=== PATIENT | male | born 1985 | race Caucasian/White ===

== ENCOUNTER 2020-05-04 19:06 | Emergency (ER) | payer BC, SELFPAY ==
--- NOTE | 2020-05-04 19:11 | ED.WOUNDLAC ---
HPI - Wound/Laceration General Chief Complaint: Wound/Laceration Stated Complaint: leg injury Time Seen by Provider: 05/04/20 19:20 Source: patient and RN notes reviewed Mode of arrival: ambulatory Limitations: no limitations History of Present Illness HPI narrative: 35-year-old male presents with concern for laceration to his anterior left lower leg that he sustained on a metal part of a pool just prior to arrival. Reports he is not up-to-date on his vaccinations. Extremity Location: Left: lower leg Related Data Home Medications Medication Instructions Recorded Confirmed clonazepam 05/04/20 escitalopram oxalate mg 05/04/20 Allergies Allergy/AdvReac Type Severity Reaction Status Date / Time Penicillins Allergy Unknown Verified 01/17/20 10:25 sulfamethizole Allergy Unknown Verified 01/17/20 10:25 trimethoprim Allergy Unknown Verified 01/17/20 10:25 Review of Systems Review of Systems: Narrative: CONSTITUTIONAL: Denies malaise, chills, sweats, or fever. SKIN: Reports laceration to the anterior left lower leg MUSCULOSKELETAL: Denies decreased range of motion, strength, sensation NEUROLOGIC: Denies numbness, weakness All systems reviewed & are unremarkable except as noted in HPI and below PMFSH Family History Family History (System 01/17/20 @ 10:25 by Samina Mix) Grandparent Hypertension Cerebrovascular accident Family history of lymphoma Social History Social History (System 01/17/20 @ 10:25 by Samina Mix) Smoking status: Never smoker Alcohol intake: current Comments At time of signature, agree with nursing past medical, surgical, social and family history. There is no relevant family history pertinent to the presenting complaint Exam Narrative: Exam Narrative: GENERAL: Well-appearing, well-nourished, and in no acute distress. HEAD: Normocephalic, atraumatic. EYES: PERRLA, conjunctivae clear NECK: Supple. CHEST: Speaks in full sentences. No respiratory distress. HEART: Regular rate and rhythm. Normal and equal peripheral pulses. EXTREMITIES: Left lower leg has normal strength and sensation, no edema, normal range of motion. Normal sensation with sensitivity to light touch and pain. No open wounds, no skin tenting, no devitalized tissue or atrophy, no ecchymosis, no obvious deformity, alignment normal, no point tenderness, nearby joints and structures intact. Distal pulses palpable and equal bilaterally, skin warm, dry, pink. Capillary refill less than 3 seconds. SKIN: Warm, dry. 5 cm linear laceration into the subcutaneous tissue, gaping noted to the left anterior lower leg. NEURO: Alert and oriented x3. PSYCH: Normal mood and affect Course Course Emergency Course: Patient is aware of diagnosis, understands and agrees to treatment plan. Anticipatory guidance given. Patient agrees to follow-up as directed and is aware of reasons to seek care at the emergency department. Portions of this record may have been created with voice recognition software Vital Signs Vital signs: Vital Signs Temperature 98.3 F 05/04/20 19:16 Pulse Rate 108 H 05/04/20 19:16 Respiratory Rate 16 05/04/20 19:16 Blood Pressure 146/84 H 05/04/20 19:16 Pulse Oximetry 98 05/04/20 19:16 Temperature 98.3 F 05/04/20 19:16 Pulse Rate 108 H 05/04/20 19:16 Respiratory Rate 16 05/04/20 19:16 Blood Pressure 146/84 H 05/04/20 19:16 Pulse Oximetry 98 05/04/20 19:16 Reviewed. Procedures Laceration Laceration 1: Date: 05/04/20 Time: 19:21 Site: lower extremity Side (If applicable): left Size (cm): 5 Description: linear Depth: simple, single layer Local Anesthetic: lidocaine 1% Pre-repair: wound explored and irrigated ====== Skin Level ====== Skin layer closed with: nylon Size (cm): 4-0 Number of sutures: 7 Technique: simple, interrupted ====== Subcutaneous Layer ====== ==
[2020-05-04 19:16] VITALS: BP 146/84; PULSE 108; RESP 16; TEMP 36.8; O2SAT 98
[2020-05-04] MEDS: TETANUS,DIPHTHERIA,AC PERTUSSIS ADULT (0.5 ML) BOOSTRIX IM (19:31)
== END 2020-05-04 19:54 | disposition home or self-care (01) ==
PROVIDERS: Emergency Provider Nurse Practitioner; PCP Internal Medicine
DX: S81.812A Laceration without foreign body, left lower leg, initial encounter (principal); W26.8XXA Contact with other sharp object(s), not elsewhere classified, initial encounter; Z23 Encounter for immunization
CPT/HCPCS: 12002; 90471; 90715; 99212; G0463

== ENCOUNTER 2020-06-24 12:11 | Emergency (ER) | payer BC, SELFPAY ==
[2020-06-24 12:31] VITALS: BP 133/85; PULSE 87; RESP 16; TEMP 36.4; O2SAT 99
--- NOTE | 2020-06-24 12:56 | ED.GENADULT ---
HPI - General Adult General Chief complaint: Ear Stated complaint: ear pain right ear Time Seen by Provider: 06/24/20 12:56 Source: patient Mode of arrival: ambulatory Limitations: no limitations History of Present Illness HPI narrative: 35-year-old male patient presents to the [facility] with complaints of right ear pain for the past 2 weeks. Patient states that he called his doctor and he prescribed him some azithromycin and an eardrop but never actually seen him. Patient states that his symptoms did get better about 4 days after starting the antibiotics and did finish the antibiotics. Patient states he noticed that his left ear was starting to bother him as well and started using the antibiotics and then again last night he had increased pain to the right ear and states now it hurts so bad he cannot even hear out of the ear. Patient does have history of psoriasis. Patient denies any fevers, sore throat, runny nose, coughing, chest pain, shortness of breath. Patient states that he called his doctor again and they tried to refer him to an ENT doctor but that the ENT doctor does not currently take his insurance so he was further referred here to have his ear looked at. Related Data Home Medications Medication Instructions Recorded Confirmed clonazepam 05/04/20 escitalopram oxalate mg 05/04/20 quetiapine 06/24/20 tadalafil mg 06/24/20 Allergies Allergy/AdvReac Type Severity Reaction Status Date / Time Penicillins Allergy Unknown Verified 01/17/20 10:25 sulfamethizole Allergy Unknown Verified 01/17/20 10:25 trimethoprim Allergy Unknown Verified 01/17/20 10:25 Review of Systems Review of Systems: Narrative: CONSTITUTIONAL: Denies fever, chills, or sweats. EYES: Denies visual changes, redness, or discharge. ENT: Denies rhinorrhea, congestion, sore throat, positive right otalgia. CARDIOVASCULAR: Denies chest pain, palpitations, or edema. RESPIRATORY: Denies cough or dyspnea. GASTROINTESTINAL: Denies abdominal pain, nausea, vomiting, or diarrhea. GENITOURINARY: Denies dysuria or hematuria. SKIN: Denies rash or itching. MUSCULOSKELETAL: Denies back pain, joint pain, or myalgia. NEUROLOGIC: Denies headache, numbness, or weakness. PSYCHIATRIC: Denies anxiety or depression. [facility] Past Medical History Medical History (Updated 06/24/20 @ 13:32 by THONG Batista) Anxiety Depression GERD (gastroesophageal reflux disease) GI bleed Surgical History Surgical History (Updated 06/24/20 @ 12:57 by THONG Batista) History of tonsillectomy Family History Family History Grandparent Hypertension Cerebrovascular accident Family history of lymphoma Social History Social History Smoking status: Never smoker Alcohol intake: current Comments At the time of my signature I agree with nursing past medical history, surgical, social, and family history. There is no relevant family history pertinent to the presenting complaint. Exam Narrative: Exam Narrative: GENERAL: Well-appearing, well-nourished, and in no acute distress. HEAD: Normocephalic, atraumatic. EYES: PERRLA and EOMI. ENT: Nares clear, no rhinorrhea or epistaxis. Mucous membranes moist. The right TM is unable to be assessed due to cerumen impaction. There is some swelling and erythema noted to the canal along with some flaky skin noted. NECK: Supple. No lymphadenopathy CHEST: Clear to auscultation. No respiratory distress. HEART: Regular rate and rhythm. No murmur heard. Normal peripheral pulses. ABDOMEN: Soft, nontender, nondistended, normal active bowel sounds. EXTREMITIES: Normal range of motion. No edema. SKIN: Warm, dry, no rash. NEURO: No focal deficits. Alert and oriented x3. Course Vital Signs Vital signs: Vital Signs Temperature 36.4 C 06/24/20 12:31 Pulse Rate 87 06/24/20 12:31 Respiratory Rate 16
[2020-06-24] MEDS: CARBAMIDE PEROXIDE 6.5% OT SOLN 15 ML BTL 5 DROP EACH EAR (13:14)
== END 2020-06-24 13:37 | disposition home or self-care (01) ==
PROVIDERS: Emergency Provider Nurse Practitioner Family
DX: H61.21 Impacted cerumen, right ear (principal); H66.91 Otitis media, unspecified, right ear; F32.9 Major depressive disorder, single episode, unspecified; F41.9 Anxiety disorder, unspecified
CPT/HCPCS: 69209; 99213; A9270; G0463

== ENCOUNTER 2021-01-18 11:27 | Emergency (ER) | payer BC, SELFPAY ==
[2021-01-18 11:30] VITALS: BP 107/87; PULSE 120; RESP 20; TEMP 36.8; O2SAT 96
--- NOTE | 2021-01-18 11:47 | ED.URI ---
HPI - URI/Sore Throat General Chief Complaint: Upper Respiratory Infection Stated Complaint: sore throat, URI Time Seen by Provider: 01/18/21 11:47 History of Present Illness HPI Narrative: 35 yo male presents to the ED with a sore throat. He reports that he began feeling sick about 1 week ago. He had fever, cough, fatigue, body aches and sore throat. 3 other family members have all tested positive for COVID-19. His rapid test was negative and PCR pending. He was prescribed Augmentin and hydrocodone by his PCP. Despite this he reports that his sore throat is intolerable and getting worse. Related Data Home Medications Medication Instructions Recorded Confirmed clonazepam 05/04/20 escitalopram oxalate mg 05/04/20 quetiapine 06/24/20 tadalafil mg 06/24/20 propranolol 01/18/21 01/18/21 Allergies Allergy/AdvReac Type Severity Reaction Status Date / Time Penicillins Allergy Unknown Verified 01/17/20 10:25 sulfamethizole Allergy Unknown Verified 01/17/20 10:25 trimethoprim Allergy Unknown Verified 01/17/20 10:25 Review of Systems Review of Systems: All systems reviewed & are unremarkable except as noted in HPI and below Constitutional: Constitutional: Reports chills, Reports fatigue and Reports fever(s) Eyes: Eyes: Reports no additional eye complaints ENT: Denies dizziness and Reports sore throat Cardiovascular: Cardiovascular: Denies chest pain Respiratory: Respiratory: Reports cough and Denies dyspnea Gastrointestinal: Gastrointestinal: Denies abdominal pain, Reports diarrhea and Reports nausea Genitourinary: Genitourinary: Reports no additional male genitourinary complaints Musculoskeletal: Musculoskeletal: Reports myalgias Neurologic: Reports headache(s) [facility] Past Medical History Medical History Anxiety Depression GERD (gastroesophageal reflux disease) GI bleed Surgical History Surgical History History of tonsillectomy Family History Family History Grandparent Hypertension Cerebrovascular accident Family history of lymphoma Social History Social History Smoking status: Never smoker Alcohol intake: current Exam Const: General: healthy appearing, no acute distress and alert Orientation/consciousness: patient oriented x3 HENMT: Ears: TM's normal bilaterally Throat: posterior oropharynx abnormal erythema; no edema and no exudates Neck: Neck: normal visual inspection and lymphadenopathy (mild anterior ) Chest: Chest palpation & inspection: no tenderness Resp: Effort & Inspection: normal respiratory effort Auscultation: clear to auscultation bilaterally, no rales, no rhonchi and no wheezes Cardio: Jugular venous distension: no JVD Rate: regular rate Rhythm: regular rhythm Heart sounds: no murmurs GI: Inspection: non-distended GI Palp: Yes Soft to palpation and No Tenderness to palpation present (GI) Skin: General skin exam: normal color Neuro: General: patient oriented x3 and moves all extremities Speech: normal speech Extrem: General: no edema Psych: Appearance: well kempt Affect: normal affect Course Vital Signs Vital signs: Vital Signs Temperature 36.8 C 01/18/21 11:30 Pulse Rate 120 H 01/18/21 11:30 Respiratory Rate 20 01/18/21 11:30 Blood Pressure 107/87 01/18/21 11:30 Pulse Oximetry 96 01/18/21 11:30 Temperature 36.8 C 01/18/21 11:30 Pulse Rate 94 01/18/21 13:53 Respiratory Rate 18 01/18/21 13:53 Blood Pressure 132/89 01/18/21 13:53 Pulse Oximetry 99 01/18/21 13:53 MDM - URI/Sore Throat Differential Diagnosis Differential diagnosis: Likely viral infection, pharyngitis and other (strep, COVID,) Medical Records Attestation: I reviewed the patient's medical records. Lab Data Atte
[2021-01-18] MEDS: KETOROLAC (*BKC) 60 MG/2 ML VIAL IM (12:42)
[2021-01-18] MEDS: DEXAMETHASONE SOD PHOS INJ 4 MG/ML VIAL 10 MG IM (12:42)
[2021-01-18 13:53] VITALS: BP 132/89; PULSE 94; RESP 18; O2SAT 99
[2021-01-18 23:33] LABS: SARS-CoV-2 RNA PCR Positive
== END 2021-01-18 14:07 | disposition home or self-care (01) ==
PROVIDERS: Emergency Provider Emergency Medicine; PCP Internal Medicine
DX: U07.1 COVID-19 (principal); J02.9 Acute pharyngitis, unspecified; F41.9 Anxiety disorder, unspecified; F32.9 Major depressive disorder, single episode, unspecified; K21.9 Gastro-esophageal reflux disease without esophagitis
CPT/HCPCS: 87081; 87880; 96372; 99284; A9270; C9803; J1100; J1885; U0003; U0005

== ENCOUNTER 2025-04-12 10:12 | Emergency (ER) | payer BC, SELFPAY ==
--- NOTE | 2025-04-12 10:17 | ED_ITS ---
HPI - URI/Sore Throat General Chief Complaint: Upper Respiratory Infection Stated Complaint: URI symptoms Time Seen by Provider: 04/12/25 10:15 Source: patient Mode of arrival: ambulatory Limitations: no limitations History of Present Illness HPI Narrative: William is a 40-year-old male patient presenting to the clinic today with complaints of runny nose, chest congestion, sore throat, body aches, fevers, and chills. He reports symptoms have been off and on for the past week. States he is coughing up some brown and green phlegm. He is a nonsmoker. Denies any chest pain or shortness of breath. Has been taking Mucinex periodically. Related Data Home Medications ?Medication ?Instructions ?Recorded ?Confirmed ?Last Taken ?Type bupropion HCl 150 mg 24 hr tablet, mg PO 12/11/24 12/11/24 Unknown History extended release quetiapine 25 mg tablet mg PO 12/11/24 12/11/24 Unknown History Allergies Allergy/AdvReac Type Severity Reaction Status Date / Time Penicillins Allergy Unknown Unknown Verified 04/12/25 10:26 sulfamethizole Allergy Unknown Hives Verified 04/12/25 10:26 trimethoprim Allergy Unknown Unknown Verified 04/12/25 10:26 Review of Systems Review of Systems: Pertinent positives per HPI. Patient denies any rash, headache, visual changes, dizziness, shortness of breath, chest pain, palpitations, nausea, vomiting, diarrhea, constipation, abdominal pain, or any urinary issues. [facility] Past Medical History Medical History Elevated glucose Apnea GERD without esophagitis Hand pain, right Numbness of left foot Insomnia Anxiety Depression GI bleed GERD (gastroesophageal reflux disease) Surgical History Surgical History Hx of wisdom tooth extraction History of tonsillectomy Family History Family History Grandparent Hypertension Cerebrovascular accident Family history of lymphoma Father Chronic pain Depression Diabetes mellitus Mother Parkinson's disease Neuropathy Sibling No problems noted. 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 There is no relevant family history pertinent to the patient complaint. Exam Narrative: General: Well-developed, well nourished, in no apparent distress Head: Normocephalic, atraumatic Eyes: Pupils equally round and reactive to light bilaterally, EOM intact, sclera and conjunctive clear, no discharge, lids normal Ears: TMs intact and congested, ear canals clear, no drainage, grossly hearing normal. Nose: Nares patent, clear nasal discharge, no inflammation, no sinus tenderness. Mouth: Oral pharynx red without lesions or masses, good dentition, MMM. Neck: Supple, trachea midline, no enlargement of anterior or posterior cervical nodes, no thyroid masses or goiter palpable. Cardio: Regular rate and rhythm, s1 and s2 normal, no murmur appreciated. Resp: Clear to auscultation bilaterally, no rhonchi, rales, wheezing or rubs Course Course Emergency Course: Portions of this record may have been created with voice recognition software. Level of Care: Express Care Visit Vital Signs Vital signs: Vital Signs Temperature 37.2 C 04/12/25 10:22 Pulse Rate 114 H 04/12/25 10:22 Respiratory Rate 18 04/12/25 10:22 Blood Pressure 122/90 04/12/25 10:22 Pulse Oximetry 99 04/12/25 10:22 Oxygen Delivery Room Air 04/12/25 10:22 Temperature 37.2 C 04/12/25 10:22 Pulse Rate 114 H 04/12/25 10:22 Respiratory Rate 18 04/12/25 10:22 Blood Pressure 122/90 04/12/25 10:22 Pulse Oximetry 99 04/12/25 10:22 Oxygen Delivery Room Air 04/12/25 10:22 Vital signs reviewed MDM - URI/Sore Throat MDM Narrative Medical decision making narrative: At the time of visit patient is resting comfortably on the exam table. Patient appears to be nontoxic. Labs: COVID, influenza, and strep test were performed. All testing was negative. We will send strep for culture. Plan: Offer chest x-ray and patient declined at this time. I suspect patient has URI with cough and congestion and pharyngitis. Prescription for prednisone, albuterol inhaler, and Tessalon Perles was sent to the pharmacy. Supportive measures were discussed with the patient and they voiced understanding discharge instructions and agrees to treatment plan. Return precautions reviewed Differential Diagnosis Differential diagnosis: Likely upper respiratory infection, otitis media, si nusitis, viral infection, bronchitis, influenza, pharyngitis and other (COVID) Discharge Plan Discharge Clinical Impression: Upper respiratory infection with cough and congestion, Pharyngitis Patient Disposition: Home Condition: Stable Instructions: Antibiotic Form, Pharyngitis (ED), Cold Symptoms (ED) Additional Instructions: Strep, COVID, and influenza testing was all negative in the clinic today. We will send strep for culture. Offered chest x-ray new declined in the clinic today. Take prescription medications only as prescribed-albuterol inhaler, prednisone, and Tessalon Perles Increase fluids and stay well hydrated Tylenol/motrin for pain/fever Flonase and OTC antihistamines as directed Vicks vapor rub to open sinuses Sinus rinses for congestion Cepacol spray, cough drops, throat lozenges, warm tea with honey/lemon, gargle salt water to soothe throat BRAT diet for diarrhea Clear liquids x 24 hours then advance as tolerated for nausea/vomiting Go to the ED if you develop a worsening in your condition- high fever not controlled by Tylenol or Motrin, dehydration, weakness, lethargy, shortness of breath, or chest pain. Follow up with your PCP in 3-5 days if symptoms persist. Patient Language: Japanese Prescriptions: New benzonatate 200 mg capsule 200 mg PO TID 7 Days Qty: 21 0RF prednisone 20 mg tablet 40 mg PO DAILY 5 Days Qty: 10 0RF albuterol sulfate 90 mcg/actuation HFA aerosol inhaler 2 puff inhalation Q4-6H PRN (Reason: shortness of breath or wheezing) 30 Days Qty: 8.5 0RF No Action quetiapine 25 mg tablet PO bupropion HCl 150 mg tablet extended release 24 hr PO escitalopram oxalate [Lexapro] 20 mg tablet 20 mg PO DAILY Qty: 90 0RF clonazepam 0.5 mg tablet See Rx Instructions PO BID PRN (Reason: anxiety) Qty: 45 2RF Rx Instructions: 1 tablet in a.m and 1/2 tablet in evening orally twice a day PRN; Follow-up/Referrals: Dequan Mobley MD [Primary Care Provider] - Time of Disposition: 10:44 Quality NIHSS Nursing Documentation ED NIHSS nursing documentation: reviewed/agree
--- OUTSIDE RECORDS SUMMARY | 2025-04-12 10:19 | XMS_ITS | Clinical Summary ---
Author Organization [facility] [employer] Address [address] [place] [address] Care Team Providers Care Fork Repairer Name Role Phone Dequan Mobley MD Primary Care Provider [phone] Source Comments [facility] [employer],non-owned Affiliates and Associated Physician Practices is amultiple site organization consisting of ambulatory clinics and hospital sitesin [place], [place], [place] and [place]. This disclosure is being madepursuant to the Care Everywhere program and may not contain all information available regarding this patient. Last updated 18.Phagenesis Allergies Active Allergy Reactions Criticality Noted Date Comments Penicillins Skin Reactions Medium 12/02/2012 Sulfacetamide Rash Medium 12/09/2022 Medications * This document contains information received from the source organization and may not represent a complete record from that organization. * Be aware that medications may not be up to date on this document. Alwaysverify current medications with the patient. No known medications Active Problems Problem Noted Date Diagnosed Date Psoriasis 09/05/2015 Acne vulgaris 12/07/2012 Family History Medical History Relation Name Comments Cancer Paternal Grandfather lymphom a Relation Name Status Comments Paternal Grandfather Social History Tobacco Use Types Packs/Day Years Used Date Smoking Tobacco: Never Tobacco Cessation:Counseling Given: Not Answered Alcohol Use Standard Drinks/Week Comments Not Currently 0 (1 standard drink = 0.6 oz pure alcohol) Patient stopped drinking last year, but had 4 drinks on Wednesday. AUDIT-C Answer Date Recorded Q1: How often do you have a drink containing alc ohol? Monthly or less 12/09/2022 Q2: How many drinks containi ng alcohol do you have on a typical day when you are drinking? 1 or 2 12/09/2022 Q3: How often do you have si x or more drinks on one occasion? 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 Oxygen Saturation 100% 12/09/2022 3:25 PM LABORATORY ANIMAL CARETAKER Inhaled Oxygen Concentration - - Weight 82.1 kg (181 lb) 12/09/2022 3:25 PM LABORATORY ANIMAL CARETAKER Height 185.4 cm (6' 1 ) 12/09/2022 3:25 PM LABORATORY ANIMAL CARETAKER Body Mass Index 23.88 12/09/2022 3:25 PM LABORATORY ANIMAL CARETAKER Plan of Treatment Health Maintenance Due Date Last Done Comments LIPID TESTING 1983 HIV SCREENING 1998 HEPATITIS C SCREENING 03/09/2001 DTAP/TDAP/TD VACCINES (1 - Tdap) 2002 HEPATITIS B VACCINE (1 of 3 - 19+ 3-dose series) 2002 COVID-19 VACCINE (1 - 2023-2 5 season) 2024 DEPRESSION SCREENING 11/22/2024 12/09/2022 INFLUENZA VACCINE (Season Ended) 2025 ZOSTER VACCINE (1 of 2) 2033 HIB VACCINE Aged Out No longer eligi ble based on patient's age to complete this topic HPV VACCINE Aged Out No longer eligi ble based on patient's age to complete this topic MENINGOCOCCAL (Group B) VACC INE SHARED DECISION-MAKING Aged Out No longer eligibl e based on patient's age to complete this topic MENINGOCOCCAL GROUPS A/C/Y/W VACCINE Aged Out No longer eligible b ased on patient's age to complete this topic PNEUMOCOCCAL VACCINE Aged Out No long er eligible based on patient's age to complete this topic Insurance ANTHEM Care Teams Fork Repairer Relationship Specialty Start Date End Date Dequan Mobley MD [address] [place] [address] PCP - General 10/19/12
--- OUTSIDE RECORDS SUMMARY | 2025-04-12 10:19 | XMS_ITS | Clinical Summary ---
Author Organization [facility] Address [address] [place] [address] Care Team Providers Care Nuclear Engineering Technician Name Role Phone Tha Rodriguez MD Primary Care Provider [phone] Allergies Active Allergy Reactions Criticality Noted Date Comments Penicillins Rash Medium 12/02/2012 Sulfa (Sulfonamide Antibiotics) Hives 01/21 Medications clonazePAM (KlonoPIN) 0.5 mg Tablet Take 0.5 mg by mouth 3 times daily. Active QUEtiapine (SEROquel) 50 mg tablet Take 50 mg by mouth daily. Active lamoTRIgine (LaMICtal) 25 mg tablet Take 25 mg by mouth 2 times daily. Active propranolol (INDERAL) 10 mg tablet Take 10 mg by mouth 2 times daily as needed. Active clindamycin HCl (CLEOCIN) 300 mg Capsule Take 300 mg by mouth 4 times daily. Active omeprazole-sodiu m bicarbonate (ZEGERID) 40-1.1 mg-gram Capsule Take 1 Capsule by mouth daily before breakfast. 30 Capsule 5 02/17/2019 Active apremilast (Otezla) 30 mg Tablet Take by mouth. Active naproxen (NAPROSYN) 500 mg tablet Take 1 Tablet (500 mg) by mouth every 12 hours as needed for Pain. 30 Tablet 11/12/2020 Active acetaminophen (TYLENOL) 500 mg tablet Take 2 Tablets (1,000 mg) by mouth every 6 hours as needed for Pain or Temperature. 30 Tablet 11/12/2020 Active Social History Tobacco Use Types Packs/Day Years Used Date Smoking Tobacco: Never Smokeless Tobacco: Former Chew Alcohol Use Standard Drinks/Week Comments Yes 7 (1 standard drink = 0.6 oz pur e alcohol) none for 2 weeks Sex and Gender Information Value Date Recorded Sex Assigned at Not on file Legal Sex Male 9:39 PM CDT Gender Identity Not on file Sexual Orientation Not on file Last Filed Vital Signs Vital Sign Reading Time Taken Comments Blood Pressure 124/84 11/12/2020 5:01 PM [employer] Pulse 100 11/12/2020 5:01 PM [employer] Temperature 36.9 C (98.5 F) 11/12/2020 1:13 PM [employer] Respiratory Rate 22 11/12/2020 5:01 PM [employer] Oxygen Saturation 100% 11/12/2020 3:27 PM [employer] Inhaled Oxygen Concentration - - Weight 90.7 kg (200 lb) 11/12/2020 1:13 PM [employer] Height 185.4 cm (6' 1 ) 11/12/2020 1:13 PM [employer] Body Mass Index 26.39 11/12/2020 1:13 PM [employer] Plan of Treatment Health Maintenance Due Date Last Done Comments DTAP/TDAP/TD VACCINES (1 - Tdap) 2002 HEPATITIS B VACCINES (1 of 3 - 19+ 3-dose series) 2002 INFLUENZA VACCINE (#1) 2024 HPV VACCINES Aged Out No longer eligi ble based on patient's age to complete this topic Insurance [facility] [employer] Care Teams Nuclear Engineering Technician Relationship Specialty Start Date End Date Tha Rodriguez MD [address] [place] [address] PCP - General Internal Medicine 01/30/19
--- OUTSIDE RECORDS SUMMARY | 2025-04-12 10:19 | XMS_ITS | Patient Health Record ---
Author Organization [facility] [employer] [facility] Address [address] [facility] [address] [place] [address] Care Team Providers Care Product Marketing Specialist Name Role Phone Leandra MENENDEZ, Dequan Primary Care Provider Linh huffman Luis Enrique Boothe Unavailable [phone] Anupama Sabra Unavailable [phone] Allergies Allergen (clinical drug ingredient) Drug/Non Drug Allergy documented on EMR Reaction Allergy Type Onset Date Status Substance with sulfonamide structure and antibacterial mechanism of action (substance) SULFA (SULFONAMIDE ANTIBIOTICS) (uncoded) Unknown Allergy 09/14/2022 Active sulfamethizole (uncoded) Unknown Allergy Active Penicillin Unknown Drug Allergy Active trimethoprim Trimethoprim Unknown Drug Allergy A ctive Results Component Value Reference Range Notes Seroquel Reviewed date:03/27/2025 08:51:04 AM Interpretation: Performing Lab: Notes/Report: NEED PHYSICIAN SIGNATURE Reviewed date:03/27/2025 08:51:04 AM Interpretation: Performing Lab: Notes/Report: Benzodiazepines Reviewed date:03/27/2025 08:51:04 AM Interpretation: Performing Lab:, [facility], [address] [place] [address], Director - [id number] Notes/Report: An exception occurred while processing this report and so it has incomplete data. Please contact [employer] for assistance. Not Medicated Consistent Not Medicated Consistent Medicated Consistent Not Medicated Consistent Not Medicated Consistent Not Medicated Consistent Not Medicated Consistent Not Medicated Consistent Not Medicated Consistent Medicated Consistent 7-Aminoclonazepam 167.6 20.0 ng/mL Temazepam NEGATIVE 40.0 ng/mL Oxazepam NEGATIVE 40.0 ng/mL Midazolam NEGATIVE 40.0 ng/mL Lorazepam NEGATIVE 40.0 ng/mL Nordiazepam NEGATIVE 40.0 ng/mL Diazepam NEGATIVE 40.0 ng/mL Clonazepam NEGATIVE 20.0 ng/mL Hydroxyalprazolam NEGATIVE 20.0 ng/mL Alprazolam NEGATIVE 20.0 ng/mL PDF Report CE_OUT_RAW_COMMON_S RC_ORU Validity Testing Reviewed date:03/27/2025 08:51:04 AM Interpretation: Performing Lab: Notes/Report: Not Medicated Consistent Not Medicated Consistent Not Medicated Consistent Not Medicated Consistent Specific [place] 1.025 1.003 - 1.030 pH 6.2 3.0 - 10.9 Oxidants -11 200 g/mL Creatinine 236.2 20.0 - 300.0 mg/dL Benzodiazepines Reviewed date:02/14/2025 08:57:21 PM Interpretation: Performing Lab: [facility], [address] [place] [address], Director - [id number] Notes/Report: An exception occurred while processing this report and so it has incomplete data. Please contact [employer] for assistance. Not Medicated Consistent Not Medicated Consistent Medicated Consistent Not Medicated Consistent Not Medicated Consistent Not Medicated Consistent Not Medicated Consistent Not Medicated Consistent Not Medicated Consistent Medicated Consistent 7-Aminoclonazepam 105.1 20.0 ng/mL Temazepam NEGATIVE 40.0 ng/mL Oxazepam NEGATIVE 40.0 ng/mL Midazolam NEGATIVE 40.0 ng/mL Lorazepam NEGATIVE 40.0 ng/mL Nordiazepam NEGATIVE 40.0 ng/mL Diazepam NEGATIVE 40.0 ng/mL Clonazepam NEGATIVE 20.0 ng/mL Hydroxyalprazolam NEGATIVE 20.0 ng/mL Alprazolam NEGATIVE 20.0 ng/mL PDF Report CE_OUT_RAW_COMMON_S RC_ORU UDT Reviewed date:03/15/2025 03:07:36 PM Interpretation: Performing Lab: Notes/Report: THC NEG 0 - 50 ng/ml Cocaine NEG 0 - 300 ng/ml Amphetamine NEG 0 - 1000 ng/ml Buprenorphine (BUP) NEG 0 - 10 ng/ml Secobarbital (Bar) NEG 0 - 300 ng/ml Oxazepam (BZO) NEG 0 - 300 ng/ml 0-hnikkitzds-7,5-psswktcm-9, 3-diphenylpyr rolidine (EDDP) NEG 0 - 300 ng/ml Methamphetamine (MET) NEG 0 - 1000 ng/ml Methylenedioxymethamphetamine (MDMA) NEG 0 - 500 ng/ml Morphine (MOP 300/[id number]) NEG 0 - 300 ng/ml Methadone (MTD) NEG 0 - 300 ng/ml Phencyclidine (PCP) NEG 0 - 25 ng/ml Nortriptyline (TCA) NEG 0 - 1000 ng/ml Oxycodone NEG 0 - 300 ng/ml x NEG 0 - 300 ng/ml UDT Reviewed date:01/25/2025 12:16:10 PM Interpretation: Performing Lab: Notes/Report: THC N 0 - 50 ng/ml Cocaine N 0 - 300 ng/ml Amphetamine N 0 - 1000 ng/ml Buprenorphine (BUP) N 0 - 10 ng/ml Secobarbital (Bar) N 0 - 300 ng/ml Oxazepam (BZO) N 0 - 300 ng/ml 2-xvbcttralv-4,1-jelvoztt-2, 3-diphenylpyr rolidine (EDDP) N 0 - 300 ng/ml Methamphetamine (MET) N 0 - 1000 ng/ml Methylenedioxymethamphetamine (MDMA) N 0 - 500 ng/ml Morphine (MOP 300/[id number]) N 0 - 300 ng/ml Methadone (MTD) N 0 - 300 ng/ml Phencyclidine (PCP) N 0 - 25 ng/ml Nortriptyline (TCA) N 0 - 1000 ng/ml Oxycodone N 0 - 300 ng/ml x N 0 - 300 ng/ml UDT Reviewed date:11/23/2024 03:37:23 PM Interpretation: Performing Lab: Notes/Report: THC NEG 0 - 50 ng/ml Cocaine NEG 0 - 300 ng/ml Amphetamine NEG 0 - 1000 ng/ml Buprenorphine (BUP) NEG 0 - 10 ng/ml Secobarbital (Bar) NEG 0 - 300 ng/ml Oxazepam (BZO) NEG 0 - 300 ng/ml 3-omxazubymi-9,0-twpoympv-9, 3-diphenylpyr rolidine (EDDP) NEG 0 - 300 ng/ml Methamphetamine (MET) NEG 0 - 1000 ng/ml Methylenedioxymethamphetamine (MDMA) NEG 0 - 500 ng/ml Morphine (MOP 300/[id number]) NEG 0 - 300 ng/ml Methadone (MTD) NEG 0 - 300 ng/ml Phencyclidine (PCP) NEG 0 - 25 ng/ml Nortriptyline (TCA) NEG 0 - 1000 ng/ml Oxycodone NEG 0 - 300 ng/ml x NEG 0 - 300 ng/ml Reason For Referral No Information Medications Medication SIG (Take, Route, Frequency, Duration) Notes Start Date End Date Status Escitalopram Oxalate 10 MG 1 tablet Oral Once a day for 90 days 02/07/2025 Active QUEtiapine Fumarate 25 MG 1 tablet at be dtime Oral Once a day for 90 days Active Escitalopram Oxalate 20 MG 1 tablet Oral Once a day for 90 days Active buPROPion HCl ER (XL) 150 MG 1 tablet in the morning Orally Once a day for 90 days Active clonazePAM 0.5 MG 1 tablet Oral Once a day for 30 days 03/23/2025 Active Immunizations Vaccine Route Administration Date Status Comme nts Moderna Covid-19 Vaccine 1st dose Unknown 04/18/2021 Ad ministered Moderna Covid-19 Vaccine 1st dose Unknown 05/19/2021 Ad ministered Social History Tobacco Use: Social History Observation Description Date Details (start date - stop date) Never Smoker NA - NA Sex Assigned At : Social History Observation Description Sex Assigned At Male Tobacco Control (Standard) Question Answer Notes Tobacco use: Nonsmoker AUDIT-C (Standard) Question Answer Notes Did you have a drink contain ing alcohol in the past year? Yes How often did you have six o r more drinks on one occasion in the past year? Never (0 point) How many drinks did you have on a typical day when you were drinking in the past year? 1 or 2 drinks (0 point) How often did you have a dri nk containing alcohol in the past year? Monthly or less (1 point) Problems Problem Type SNOMED Code ICD Code Onset Dates Problem Status W/U Status Risk Notes Problem Generalized anxiety disorder (23303303) Generalized anxiety disorder (F41.1) Active confirmed Problem Panic disorder (676700873) Panic disorder [episodic paroxysmal anxiety] without agoraphobia (F41.0) Active confirmed Problem Attention deficit hyperactivity disorder (154383890) Attention deficit hyperactivity disorder (ADHD), unspecified ADHD type (F90.9) Active confirmed Problem 29292884 Poor concentration (R41.840) Active confirmed Problem Moderate recurrent major depression (70327770) Major depressive disorder, recurrent episode, moderate (F33.1) Active confirmed Problem Acne vulgaris (13468784) Acne vulgaris (L70.0) 02/22/20 18 Active confirmed Problem Psoriasis (8540076) Psoriasis (L40.9) 02/22/20 18 Active confirmed Vital Signs Heart Rate 89 /min 03/23/2025 Height-cm 185.42 cm 03/23/2025 Blood pressure diastolic 88 mm Hg 03/23/2025 Weight-kg 96.62 kg 03/23/2025 Height 73.00 in 03/23/2025 Blood pressure systolic 144 mm Hg 03/23/2025 Weight 213 lbs 03/23/2025 BMI 28.1 kg/m2 03/23/2025 Encounters Encounter Location Date Provider Diagnosis [facility] [employer] [facility], Walk[address] [address] 10/16/2024 Sabra Anupama Generalized anxiety disorder F41.1 ; Major depressive disorder, recurrent episode, moderate F33.1 and Panic disorder [episodic paroxysmal anxiety] without agoraphobia F41.0 [facility] [employer] [facility] [address] [facility] [address] [address] 11/02/2024 Luis Enrique Shyann Generalized anxiety disorder F41.1 ; Major depressive disorder, recurrent episode, moderate F33.1 and Panic disorder [episodic paroxysmal anxiety] without agoraphobia F41.0 [facility] [employer] [facility] [address] [facility] [address] [address] 11/23/2024 Luis Enrique Shyann Poor concentration R41.840 [employer] [facility] [address] [address] 11/30/2024 Luis Enrique Shyann Generalized anxiety disorder F41.1 ; Major depressive disorder, recurrent episode, moderate F33.1 ; Panic disorder [episodic paroxysmal anxiety] without agoraphobia F41.0 and Poor concentration R41.840 [employer] [facility] [address] [address] 01/25/2025 Luis Enrique Shyann Generalized anxiety disorder F41.1 ; Major depressive disorder, recurrent episode, moderate F33.1 ; Panic disorder [episodic paroxysmal anxiety] without agoraphobia F41.0 and Poor concentration R41.840 [facility] [employer] [facility] [address] [address] 03/15/2025 Luis Enrique Shyann Attention deficit hyperactivity disorder (ADHD), unspecified ADHD type F90.9 [facility], [facility] [address] [place] [address] 03/23/2025 Luis Enrique Shyann Generalized anxiety disorder F41.1 ; Major depressive disorder, recurrent episode, moderate F33.1 ; Panic disorder [episodic paroxysmal anxiety] without agoraphobia F41.0 ; Negative depression screening Z13.31 ; Encounter for screening for cardiovascular disorders Z13.6 and Dietary counseling and surveillance Z71.3 [facility], [facility] [address] [place] [address] 11/02/[address] [facility], [facility] [address] [place] [address] 11/02/[address] [facility], [facility] [address] [place] [address] 01/30/2025 Luis Enrique Shyann Generalized anxiety disorder F41.1 [facility], [facility] [address] [place] [address] 02/07/2025 Luis Enrique Shyann Generalized anxiety disorder F41.1 [facility], [facility] [address] [place] [address] 02/26/2025 Luis Enrique Shyann Major depressive disorder, recurrent episode, moderate F33.1 and Generalized anxiety disorder F41.1 [facility], [facility] [address] [place] [address] 12/28/2024 Luis Enrique Shyann Generalized anxiety disorder F41.1 [facility], [facility] [address] [place] [address] 02/26/[address] [facility], [facility] [address] [place] [address] 02/26/[address] [facility], [facility] [address] [place] [address] 02/26/[address] [facility], [facility] [address] [place] [address] 02/26/[address] [facility], [facility] [address] [place] [address] 02/27/2025 Luis Enrique Boothe Major depressive disorder, recurrent episode, moderate F33.1 and Generalized anxiety disorder F41.1 [facility] [employer] [address] [facility] [address] [place] [address] 02/28/2025 Luis Enrique Boothe Major depressive disorder, recurrent episode, moderate F33.1 and Generalized anxiety disorder F41.1 Assessments Encounter Date Diagnosis (ICD Code) Assessment Notes Treatment Notes Treatment Clinical Notes Section Notes 10/16/2024 Generalized anxiety disorder (ICD-10 - F41.1) 1. Anxiety Disorder - Continue with the prescribed Lexapro as directed by the primary care provider. - Utilize a meditation ernie to assist in managing anxiety symptoms. - Employ TIP (Temperature, Intense exercise, Paced breathing, Paired muscle relaxation) techniques as a method for anxiety management. - Monitor the effectiveness of Xanax (0.5 mg in the morning and at night) in managing anxiety and brain fog. 2. Insomnia - Maintain the use of Lunesta as prescribed for aiding sleep initiation. - Implement sleep hygiene and relaxation techniques to enhance sleep maintenance. - Keep an eye on any side effects or deterioration in sleep quality. 3. Possible ADHD - Plan to discuss further evaluation with Dr. Boothe in the upcoming appointment on November 02. - Post-evaluation , consider a referral to a specialist if deemed necessary. 4. Therapy - Arrange a follow-up therapy session for the next or Wednesday. - Concentrate on building coping strategies and skills for anxiety management. - Aim to transition to long-term therapy following the completion of the 3-month walk-in clinic program. 5. Education and Support - Offer printed materials on TIP techniques for the patient to take home. - Promote open communication with family members and the support system. - Reaffirm to the patient that seeking help and focusing on coping strategies represents a positive move towards managing anxiety. Follow-up: - Schedule a follow-up appointment to assess the patient's progress and continue addressing the identified issues. 11/23/2024 Poor concentration (ICD-10 - R41.840) 11/30/2024 Generalized anxiety disorder (ICD-10 - F41.1) Anxiety and Depressive Symptoms - Assessment: Patient experiencing anxiety and depressive symptoms. - Plan: - Continue citalopram as prescribed. - Add bupropion XL 150 mg in the morning for attention, depression, and anxiety. - Retest ADHD rating scale in 2 months to evaluate the impact of bupropion on symptoms. Sleep Disturbances - Assessment: Patient reports quinine is helping with sleep at night. - Plan: - Continue quinine for sleep improvement. Possible ADHD Symptoms ADHD testing results discussed, planned made (billing done separately) - Assessment: Despite the ADHD test results not indicating ADHD, the patient's symptoms suggest otherwise. Patient reports rushing through work projects and difficulty focusing. - Plan: - Monitor the impact of bupropion on attention and other ADHD symptoms. - Consider non-stimulant medication for ADHD if symptoms do not improve after 2 months. Brain Fog and Difficulty Focusing - Assessment: Patient reports clonazepam helps clear brain fog and improve functioning. - Plan: - Continue clonazepam 0.5 mg daily as needed for brain fog relief. - Monitor the impact of bupropion on brain fog and focus. Medication Refills - Plan: - Refill citalopram and cortisone prescriptions. - Send prescriptions to [facility] in [place], [place]. Substance Use - Assessment: Patient reports occasional alcohol use at social events. - Plan: - Encourage the patient to maintain abstinence from marijuana, street drugs, and excessive alcohol consumption. Follow-up - Plan: - Reevaluate in 2 months to assess the patient's symptoms and response to the addition of bupropion. 10/16/2024 Major depressive disorder, recurrent episode, moderate (ICD-10 - F33.1) 1. Anxiety Disorder - Continue with the prescribed Lexapro as directed by the primary care provider. - Utilize a meditation ernie to assist in managing anxiety symptoms. - Employ TIP (Temperature, Intense exercise, Paced breathing, Paired muscle relaxation) techniques as a method for anxiety management. - Monitor the effectiveness of Xanax (0.5 mg in the morning and at night) in managing anxiety and brain fog. 2. Insomnia - Maintain the use of Lunesta as prescribed for aiding sleep initiation. - Implement sleep hygiene and relaxation techniques to enhance sleep maintenance. - Keep an eye on any side effects or deterioration in sleep quality. 3. Possible ADHD - Plan to discuss further evaluation with Dr. Boothe in the upcoming appointment on November 02. - Post-evaluation , consider a referral to a specialist if deemed necessary. 4. Therapy - Arrange a follow-up therapy session for the next or Wednesday. - Concentrate on building coping strategies and skills for anxiety management. - Aim to transition to long-term therapy following the completion of the 3-month walk-in clinic program. 5. Education and Support - Offer printed materials on TIP techniques for the patient to take home. - Promote open communication with family members and the support system. - Reaffirm to the patient that seeking help and focusing on coping strategies represents a positive move towards managing anxiety. Follow-up: - Schedule a follow-up appointment to assess the patient's progress and continue addressing the identified issues. 11/02/2024 Generalized anxiety disorder (ICD-10 - F41.1) Generalized Anxiety Disorder (BENJAMIN) - Assessment: Patient reports significant improvement in anxiety symptoms and brain fog with Lexapro after 2.5 months of use. - Plan: - Continue Lexapro 20 mg daily for anxiety management. - Encourage the patient to engage in relaxation techniques, such as deep breathing exercises and meditation. - Schedule Cognitive Behavioral Therapy (CBT) sessions with Kelli Borja. - Consider the patient for Dialectical Behavior Therapy (DBT) group if deemed appropriate by Sabra. Insomnia - Assessment: Patient reports sleep onset anxiety and fear of the process of falling asleep. - Plan: - Discontinue Lunesta due to ineffectiveness . - Start quetiapine 25 mg for sleep management (patient reports previous success with this medication). - Encourage the patient to maintain a consistent sleep schedule and practice good sleep hygiene. Possible Attention Deficit Hyperactivity Disorder (ADHD) - Assessment: Patient reports symptoms such as difficulty focusing, distractibility , and mind racing. - Plan: - Order ADHD testing (computer-based test) post-. - Reassess the need for medication adjustments based on test results. Obsessive-Compu lsive Disorder (OCD) tendencies - Assessment: Patient reports OCD-like behaviors, such as excessive cleaning and difficulty making decisions. - Plan: - Monitor during CBT sessions and address any concerns with the therapist. Lifestyle modifications - Assessment: Patient acknowledges the need for better self-care and time management. - Plan: - Encourage the patient to engage in regular physical activity, such as going to the gym or walking. - Recommend improving dietary habits and meal planning. Medication management - Assessment: Patient reports significant improvement in symptoms with clonazepam use. - Plan: - Continue clonazepam 0.5 mg daily as needed for anxiety. - Perform a urine drug screen to ensure compliance with medication regimen. Follow-up - Plan: - Schedule a follow-up appointment in 3 to 4 weeks to monitor progress and medication effectiveness. - Ensure patient has an adequate supply of medications until the next appointment. 12/28/2024 Generalized anxiety disorder (ICD-10 - F41.1) 01/25/2025 Generalized anxiety disorder (ICD-10 - F41.1) 01/30/2025 Generalized anxiety disorder (ICD-10 - F41.1) 02/07/2025 Generalized anxiety disorder (ICD-10 - F41.1) 02/26/2025 Major depressive disorder, recurrent episode, moderate (ICD-10 - F33.1) 02/28/2025 Major depressive disorder, recurrent episode, moderate (ICD-10 - F33.1) 03/15/2025 Attention deficit hyperactivity disorder (ADHD), unspecified ADHD type (ICD-10 - F90.9) Here is a structured analysis and non-pharmacologic treatment recommendations based on the [facility] Clinical Report for Gene Morley: Summary of Findings: ADHD Screening (ASRS): Result: Not indicative of ADHD. Part A Score: 3 (threshold is 4 or more). Part B Score: 3 (supportive symptoms are minimal). Cognitive Assessment Overview: Cognitive Markers Outside Typical Range: 1 area flagged. Planning (Spatial Planning): Slightly below average (Percentile 39). Working Memory (Spatial Working Memory): Excellent (Percentile 94). Attention (Feature Match): Low number of errors but moderate reaction time (Percentile 65). Response Inhibition (Double Trouble): Good error control but on the lower side of performance (Percentile 15). Reaction time variability was slightly elevated. Sustained Attention (SART): Commission errors flagged (Percentile 1) indicating some challenges with momentary impulsivity. Slowing after errors was less adaptive than typical. Interpretation: ADHD Likelihood: ADHD is not indicated based on self-report and cognitive data. Cognitive Pattern Recognition: Primary concerns are related to momentary impulsivity and inconsistent response control, but overall cognitive functioning, especially working memory, is a strong protective factor. Congruence of Data: The ASRS and objective cognitive results are congruent, showing mild executive control inefficiencies but no ADHD-level impairment. Non-Pharmacologic Treatment Recommendations: Cognitive Control and Impulse Management Training: Engage in structured cognitive exercises to strengthen response inhibition and decrease commission errors. Examples include stop-signal tasks, go/no-go training, and paced breathing exercises during tasks. Mindfulness-Based Attention Training: Daily short mindfulness sessions focusing on body scan or breath tracking to improve lldmph-ey-zrdysi awareness and reduce impulsive reactions. Executive Function Skill Development: Structured time management strategies like task batching and prioritized to-do lists. Use tools like visual timers to improve rnzc-nt-osgo and reduce reactionary task switching. Physical Activity Routine: Recommend moderate-intensit y aerobic exercise such as walking or swimming four times per week. Regular physical activity supports executive control, emotional regulation, and cognitive flexibility. Environmental Structuring: Reduce multi-tasking demands by dedicating specific blocks of time to focused single-task work. Remove digital and physical distractions during critical work or focus periods. Sleep and Nutrition Optimization: Promote consistent sleep schedules to maintain cognitive endurance. Encourage a diet rich in complex carbohydrates, lean protein, and essential fatty acids to support cognitive performance. Self-Monitoring Techniques: Introduce a simple daily reflection journal to track task persistence, attention quality, and impulsive errors. Weekly review sessions to identify trends and adjust strategies accordingly. Cognitive Stimulation Activities: Encourage activities that challenge executive functions such as puzzles, memory games, or complex hobby projects. Periodic Reassessment: Reevaluate cognitive control and executive function efficiency after 6 to 12 months, using either cognitive retesting or structured behavioral tracking. 03/23/2025 Generalized anxiety disorder (ICD-10 - F41.1) 02/27/2025 Major depressive disorder, recurrent episode, moderate (ICD-10 - F33.1) 03/23/2025 Major depressive disorder, recurrent episode, moderate (ICD-10 - F33.1) 02/28/2025 Generalized anxiety disorder (ICD-10 - F41.1) 01/25/2025 Major depressive disorder, recurrent episode, moderate (ICD-10 - F33.1) 03/23/2025 Panic disorder [episodic paroxysmal anxiety] without agoraphobia (ICD-10 - F41.0) 02/27/2025 Generalized anxiety disorder (ICD-10 - F41.1) 02/26/2025 Generalized anxiety disorder (ICD-10 - F41.1) 11/02/2024 Major depressive disorder, recurrent episode, moderate (ICD-10 - F33.1) Generalized Anxiety Disorder (BENJAMIN) - Assessment: Patient reports significant improvement in anxiety symptoms and brain fog with Lexapro after 2.5 months of use. - Plan: - Continue Lexapro 20 mg daily for anxiety management. - Encourage the patient to engage in relaxation techniques, such as deep breathing exercises and meditation. - Schedule Cognitive Behavioral Therapy (CBT) sessions with Kelli Borja. - Consider the patient for Dialectical Behavior Therapy (DBT) group if deemed appropriate by [facility]. Insomnia - Assessment: Patient reports sleep onset anxiety and fear of the process of falling asleep. - Plan: - Discontinue Lunesta due to ineffectiveness . - Start quetiapine 25 mg for sleep management (patient reports previous success with this medication). - Encourage the patient to maintain a consistent sleep schedule and practice good sleep hygiene. Possible Attention Deficit Hyperactivity Disorder (ADHD) - Assessment: Patient reports symptoms such as difficulty focusing, distractibility , and mind racing. - Plan: - Order ADHD testing (computer-based test) [facility]. - Reassess the need for medication adjustments based on test results. Obsessive-Compu lsive Disorder (OCD) tendencies - Assessment: Patient reports OCD-like behaviors, such as excessive cleaning and difficulty making decisions. - Plan: - Monitor during CBT sessions and address any concerns with the therapist. Lifestyle modifications - Assessment: Patient acknowledges the need for better self-care and time management. - Plan: - Encourage the patient to engage in regular physical activity, such as going to the gym or walking. - Recommend improving dietary habits and meal planning. Medication management - Assessment: Patient reports significant improvement in symptoms with clonazepam use. - Plan: - Continue clonazepam 0.5 mg daily as needed for anxiety. - Perform a urine drug screen to ensure compliance with medication regimen. Follow-up - Plan: - Schedule a follow-up appointment in 3 to 4 weeks to monitor progress and medication effectiveness. - Ensure patient has an adequate supply of medications until the next appointment. 11/30/2024 Major depressive disorder, recurrent episode, moderate (ICD-10 - F33.1) Anxiety and Depressive Symptoms - Assessment: Patient experiencing anxiety and depressive symptoms. - Plan: - Continue citalopram as prescribed. - Add bupropion XL 150 mg in the morning for attention, depression, and anxiety. - Retest ADHD rating scale in 2 months to evaluate the impact of bupropion on symptoms. Sleep Disturbances - Assessment: Patient reports quinine is helping with sleep at night. - Plan: - Continue quinine for sleep improvement. Possible ADHD Symptoms ADHD testing results discussed, planned made (billing done separately) - Assessment: Despite the ADHD test results not indicating ADHD, the patient's symptoms suggest otherwise. Patient reports rushing through work projects and difficulty focusing. - Plan: - Monitor the impact of bupropion on attention and other ADHD symptoms. - Consider non-stimulant medication for ADHD if symptoms do not improve after 2 months. Brain Fog and Difficulty Focusing - Assessment: Patient reports clonazepam helps clear brain fog and improve functioning. - Plan: - Continue clonazepam 0.5 mg daily as needed for brain fog relief. - Monitor the impact of bupropion on brain fog and focus. Medication Refills - Plan: - Refill citalopram and cortisone prescriptions. - Send prescriptions to [facility] in [place], [place]. Substance Use - Assessment: Patient reports occasional alcohol use at social events. - Plan: - Encourage the patient to maintain abstinence from marijuana, street drugs, and excessive alcohol consumption. Follow-up - Plan: - Reevaluate in 2 months to assess the patient's symptoms and response to the addition of bupropion. 10/16/2024 Panic disorder [episodic paroxysmal anxiety] without agoraphobia (ICD-10 - F41.0) 1. Anxiety Disorder - Continue with the prescribed Lexapro as directed by the primary care provider. - Utilize a meditation ernie to assist in managing anxiety symptoms. - Employ TIP (Temperature, Intense exercise, Paced breathing, Paired muscle relaxation) techniques as a method for anxiety management. - Monitor the effectiveness of Xanax (0.5 mg in the morning and at night) in managing anxiety and brain fog. 2. Insomnia - Maintain the use of Lunesta as prescribed for aiding sleep initiation. - Implement sleep hygiene and relaxation techniques to enhance sleep maintenance. - Keep an eye on any side effects or deterioration in sleep quality. 3. Possible ADHD - Plan to discuss further evaluation with Dr. Boothe in the upcoming appointment on November 02. - Post-evaluation , consider a referral to a specialist if deemed necessary. 4. Therapy - Arrange a follow-up therapy session for the next or Wednesday. - Concentrate on building coping strategies and skills for anxiety management. - Aim to transition to long-term therapy following the completion of the 3-month walk-in clinic program. 5. Education and Support - Offer printed materials on TIP techniques for the patient to take home. - Promote open communication with family members and the support system. - Reaffirm to the patient that seeking help and focusing on coping strategies represents a positive move towards managing anxiety. Follow-up: - Schedule a follow-up appointment to assess the patient's progress and continue addressing the identified issues. 11/30/2024 Panic disorder [episodic paroxysmal anxiety] without agoraphobia (ICD-10 - F41.0) Anxiety and Depressive Symptoms - Assessment: Patient experiencing anxiety and depressive symptoms. - Plan: - Continue citalopram as prescribed. - Add bupropion XL 150 mg in the morning for attention, depression, and anxiety. - Retest ADHD rating scale in 2 months to evaluate the impact of bupropion on symptoms. Sleep Disturbances - Assessment: Patient reports quinine is helping with sleep at night. - Plan: - Continue quinine for sleep improvement. Possible ADHD Symptoms ADHD testing results discussed, planned made (billing done separately) - Assessment: Despite the ADHD test results not indicating ADHD, the patient's symptoms suggest otherwise. Patient reports rushing through work projects and difficulty focusing. - Plan: - Monitor the impact of bupropion on attention and other ADHD symptoms. - Consider non-stimulant medication for ADHD if symptoms do not improve after 2 months. Brain Fog and Difficulty Focusing - Assessment: Patient reports clonazepam helps clear brain fog and improve functioning. - Plan: - Continue clonazepam 0.5 mg daily as needed for brain fog relief. - Monitor the impact of bupropion on brain fog and focus. Medication Refills - Plan: - Refill citalopram and cortisone prescriptions. - Send prescriptions to [facility] in [place], [place]. Substance Use - Assessment: Patient reports occasional alcohol use at social events. - Plan: - Encourage the patient to maintain abstinence from marijuana, street drugs, and excessive alcohol consumption. Follow-up - Plan: - Reevaluate in 2 months to assess the patient's symptoms and response to the addition of bupropion. 11/30/2024 Poor concentration (ICD-10 - R41.840) Anxiety and Depressive Symptoms - Assessment: Patient experiencing anxiety and depressive symptoms. - Plan: - Continue citalopram as prescribed. - Add bupropion XL 150 mg in the morning for attention, depression, and anxiety. - Retest ADHD rating scale in 2 months to evaluate the impact of bupropion on symptoms. Sleep Disturbances - Assessment: Patient reports quinine is helping with sleep at night. - Plan: - Continue quinine for sleep improvement. Possible ADHD Symptoms ADHD testing results discussed, planned made (billing done separately) - Assessment: Despite the ADHD test results not indicating ADHD, the patient's symptoms suggest otherwise. Patient reports rushing through work projects and difficulty focusing. - Plan: - Monitor the impact of bupropion on attention and other ADHD symptoms. - Consider non-stimulant medication for ADHD if symptoms do not improve after 2 months. Brain Fog and Difficulty Focusing - Assessment: Patient reports clonazepam helps clear brain fog and improve functioning. - Plan: - Continue clonazepam 0.5 mg daily as needed for brain fog relief. - Monitor the impact of bupropion on brain fog and focus. Medication Refills - Plan: - Refill citalopram and cortisone prescriptions. - Send prescriptions to [facility] in [place], [place]. Substance Use - Assessment: Patient reports occasional alcohol use at social events. - Plan: - Encourage the patient to maintain abstinence from marijuana, street drugs, and excessive alcohol consumption. Follow-up - Plan: - Reevaluate in 2 months to assess the patient's symptoms and response to the addition of bupropion. 11/02/2024 Panic disorder [episodic paroxysmal anxiety] without agoraphobia (ICD-10 - F41.0) Generalized Anxiety Disorder ([place]ENJAMIN) - Assessment: Patient reports significant improvement in anxiety symptoms and brain fog with Lexapro after 2.5 months of use. - Plan: - Continue Lexapro 20 mg daily for anxiety management. - Encourage the patient to engage in relaxation techniques, such as deep breathing exercises and meditation. - Schedule Cognitive Behavioral Therapy (CBT) sessions with Kelli Borja. - Consider the patient for Dialectical Behavior Therapy (DBT) group if deemed appropriate by [facility]. Insomnia - Assessment: Patient reports sleep onset anxiety and fear of the process of falling asleep. - Plan: - Discontinue Lunesta due to ineffectiveness . - Start quetiapine 25 mg for sleep management (patient reports previous success with this medication). - Encourage the patient to maintain a consistent sleep schedule and practice good sleep hygiene. Possible Attention Deficit Hyperactivity Disorder (ADHD) - Assessment: Patient reports symptoms such as difficulty focusing, distractibility , and mind racing. - Plan: - Order ADHD testing (computer-based test) [facility]. - Reassess the need for medication adjustments based on test results. Obsessive-Compu lsive Disorder (OCD) tendencies - Assessment: Patient reports OCD-like behaviors, such as excessive cleaning and difficulty making decisions. - Plan: - Monitor during CBT sessions and address any concerns with the therapist. Lifestyle modifications - Assessment: Patient acknowledges the need for better self-care and time management. - Plan: - Encourage the patient to engage in regular physical activity, such as going to the gym or walking. - Recommend improving dietary habits and meal planning. Medication management - Assessment: Patient reports significant improvement in symptoms with clonazepam use. - Plan: - Continue clonazepam 0.5 mg daily as needed for anxiety. - Perform a urine drug screen to ensure compliance with medication regimen. Follow-up - Plan: - Schedule a follow-up appointment in 3 to 4 weeks to monitor progress and medication effectiveness. - Ensure patient has an adequate supply of medications until the next appointment. 01/25/2025 Panic disorder [episodic paroxysmal anxiety] without agoraphobia (ICD-10 - F41.0) 03/23/2025 Negative depression screening (ICD-10 - Z13.31) 03/23/2025 Encounter for screening for cardiovascular disorders (ICD-10 - Z13.6) 01/25/2025 Poor concentration (ICD-10 - R41.840) 03/23/2025 Dietary counseling and surveillance (ICD-10 - Z71.3) 01/25/2025 Other ADHD - Assessment: Patient reports significant improvement in brain fog and concentration since the last visit, attributing this to the current medication regimen, including escitalopram 20 mg daily and bupropion XL 150 mg daily. The patient prefers not to make any drastic changes to the regimen. - Plan: - Continue the current medication regimen. - Schedule a retest for ADHD within the next 4 weeks to assess progress, considering the patient's busy work schedule. Weight Gain - Assessment: Patient reports weight gain since the last visit, with a current weight of 214 lbs compared to 200 lbs in October. The patient acknowledges the need to monitor diet and exercise. - Plan: - Encourage the patient to monitor their diet and engage in regular exercise to manage weight gain. - Reassess weight at the next visit. Elevated Blood Pressure - Assessment: Patient's blood pressure was measured at 150/88 during the visit. The patient has a history of variable readings with automatic blood pressure cuffs. - Plan: - Retake the patient's blood pressure manually during the visit to confirm the reading. - Encourage the patient to monitor their blood pressure regularly and report any consistently elevated readings. Sleep and Anxiety - Assessment: Patient reports taking quetiapine 25 mg at night and clonazepam 0.5 mg as needed for sleep, which is effective. - Plan: - Continue the current medication regimen for sleep and anxiety management. - Reassess the patient's sleep and anxiety symptoms at the next visit. Follow-up - Plan: - Schedule a follow-up appointment in 2 months to monitor the patient's progress and reassess the medication regimen. 03/23/2025 Laura Morley Jr. presents with significant improvement in mood, depression, anxiety, and cognitive symptoms, reporting the best overall state in a long time. Depression and Anxiety Assessment: Patient reports significant improvement in depressive and anxiety symptoms. He states that his mood is the best it's been in a very long time with no current symptoms of depression or anxiety. This is a marked improvement from his initial presentation, which included extreme depression, extreme anxiety. The patient's self-reported improvement is corroborated by his depression score, which indicates no depression. Plan: - Continue escitalopram 20 mg - Continue bupropion 50 mg - Continue clonazepam 0.5 mg at night for sleep - Patient reports having approximately 10 pills remaining - New prescription to be sent for 3-month supply - Follow up in 3 months - Option for early appointment within 2 months if dose increase is needed Attention Deficit Hyperactivity Disorder (ADHD) Assessment: Patient has undergone a second ADHD test. Results show improvement in several areas: - Adult Self-Rating Scale Part A: Stable at 3 out of 3 (previously 4 positive) - Adult Self-Rating Scale Part B: Improved from 8 markers to 3 - Cognitive assessment: - Token search improved from 54% to 73% (102 to 109) - Working memory feature matches improved from 32% to 39% The patient reports significant improvement in focus, with resolution of previously experienced extreme brain fog. He also notes improvements in misplacing things, forgetting things, getting distracted, and talking too much. The clinical ADHD reporting indicates one indicator of slowing after error, which is an improvement from the previous test. Plan: - Continue current medication regimen - Monitor for sustained improvement in ADHD symptoms Sleep Issues Assessment: Patient reports sleeping well, attributing this to reduced anxiety and depression. He notes that quetiapine does not make him feel tired, but he is still sleeping adequately. Plan: - Continue quetiapine 25 mg - Monitor sleep quality and daytime alertness Disclaimer: This note has been transcribed using speech recognition software and serves as a reflection of the patient's visit. While efforts have been made to ensure accuracy, there may be errors, including piano mechanic inaccuracies and misspellings of medication names. This document should not be considered a verbatim record, and any discrepancies should be verified with the provider. Plan Of Treatment Future Test Test Name Order Date ADHD Testing 11/30/2024 Next Appt Details Provider Name:Luis Enrique Boothe , 06/22/2025 10:00:00 AM, [address], [address], [place], [id number], Insurance Providers Payer Name Payer Address Payer Phone Subscriber Number Group Number Insured Name Patient Relationship to Insured Coverage Start Date Coverage End Date [facility] [address] [place] [phone] [id number] SOCORRO MORLEY Self - patient is the insured Medical (General) History Medical History History ICD Code Problems: Generalized anxiety disorder Insomnia disorder related to another men tanya disorder Mild recurrent major depression Panic disorder Severe recurrent major depression withou t psychotic features , Past Psychiatric History: Anxiety Disord er,Panic Disorder,Phobias abdominal aortic aneurysm: No atrial fibrillation: No chronic fatigue syndrome: No essential tremor: No hyperlipidemia: No hypertension: No Parkinson's disease: No restless leg syndrome: No stroke: No subdural hematoma: No type 1 diabetes mellitus: No type 2 diabetes mellitus: No vitamin B12 deficiency: No vitamin D deficiency: No Surgical History Surgery Date(Month/Year) Tonsillectomy ([id number])
[2025-04-12 10:22] VITALS: BP 122/90; PULSE 114; RESP 18; TEMP 37.2; O2SAT 99
[2025-04-12 11:00] LABS: EDCOVIDSCREEN Negative (Negative)
[2025-04-12 11:01] LABS: EDINFLUASCREEN Negative (Negative); EDINFLUBSCREEN Negative (Negative); EDSTREPNEGPOS1 Negative (Negative)
== END 2025-04-12 10:51 | disposition home or self-care (01) ==
PROVIDERS: Emergency Provider Nurse Practitioner Family; PCP Family Medicine
DX: J06.9 Acute upper respiratory infection, unspecified (principal); R05.9 Cough, unspecified; J02.9 Acute pharyngitis, unspecified; Z20.822 Contact with and (suspected) exposure to COVID-19; K21.9 Gastro-esophageal reflux disease without esophagitis; F41.9 Anxiety disorder, unspecified; F32.A Depression, unspecified
CPT/HCPCS: 87081; 87426; 87804; 87880; 99213; G0463

== ENCOUNTER 2025-04-29 14:56 | Emergency (ER) | payer BC, SELFPAY ==
[2025-04-29 14:58] VITALS: BP 145/88; PULSE 100; RESP 18; TEMP 36.6; O2SAT 100
--- OUTSIDE RECORDS SUMMARY | 2025-04-29 15:00 | XMS_ITS | Patient Health Record ---
Author Organization [facility] [employer] Address [address] [facility] [address] [place] [address] Care Team Providers Care Client Manager Name Role Phone Leandra MENENDEZ, Dequan Primary Care Provider Linh RomeroLuis Enrique mena Unavailable [phone] Sabra Altman Unavailable [phone] Allergies Allergen (clinical drug ingredient) Drug/Non Drug Allergy documented on EMR Reaction Allergy Type Onset Date Status Substance with sulfonamide structure and antibacterial mechanism of action (substance) SULFA (SULFONAMIDE ANTIBIOTICS) (uncoded) Unknown Allergy 09/14/2022 Active sulfamethizole (uncoded) Unknown Allergy Active Penicillin Unknown Drug Allergy Active trimethoprim Trimethoprim Unknown Drug Allergy A ctive Results Component Value Reference Range Notes UDT Reviewed date:11/23/2024 03:37:23 PM Interpretation: Performing Lab: Notes/Report: THC NEG 0 - 50 ng/ml Cocaine NEG 0 - 300 ng/ml Amphetamine NEG 0 - 1000 ng/ml Buprenorphine (BUP) NEG 0 - 10 ng/ml Secobarbital (Bar) NEG 0 - 300 ng/ml Oxazepam (BZO) NEG 0 - 300 ng/ml 2-qnpusqfabj-2,1-kkssofze-6, 3-diphenylpyr rolidine (EDDP) NEG 0 - 300 ng/ml Methamphetamine (MET) NEG 0 - 1000 ng/ml Methylenedioxymethamphetamine (MDMA) NEG 0 - 500 ng/ml Morphine (MOP 300/[id number]) NEG 0 - 300 ng/ml Methadone (MTD) NEG 0 - 300 ng/ml Phencyclidine (PCP) NEG 0 - 25 ng/ml Nortriptyline (TCA) NEG 0 - 1000 ng/ml Oxycodone NEG 0 - 300 ng/ml x NEG 0 - 300 ng/ml Benzodiazepines Reviewed date:02/14/2025 08:57:21 PM Interpretation: Performing Lab:[facility], [address] [facility], Director - [id number] Notes/Report: An exception occurred while processing this report and so it has incomplete data. Please contact [employer] for assistance. Not Medicated Consistent Not [...] ng/mL PDF Report CE_OUT_RAW_COMMON_S RC_ORU UDT Reviewed date:01/25/2025 12:16:10 PM Interpretation: Performing Lab: Notes/Report: THC N 0 - 50 ng/ml Cocaine N 0 - 300 ng/ml Amphetamine N 0 - 1000 ng/ml Buprenorphine (BUP) N 0 - 10 ng/ml Secobarbital (Bar) N 0 - 300 ng/ml Oxazepam (BZO) N 0 - 300 ng/ml 9-qoypltbulr-7,1-wfodqiuk-4, 3-diphenylpyr rolidine (EDDP) N 0 - 300 ng/ml Methamphetamine (MET) N 0 - 1000 ng/ml Methylenedioxymethamphetamine (MDMA) N 0 - 500 ng/ml Morphine (MOP 300/[id number]) N 0 - 300 ng/ml Methadone (MTD) N 0 - 300 ng/ml Phencyclidine (PCP) N 0 - 25 ng/ml Nortriptyline (TCA) N 0 - 1000 ng/ml Oxycodone N 0 - 300 ng/ml x N 0 - 300 ng/ml Validity Testing Reviewed date:03/27/2025 08:51:04 AM Interpretation: Performing Lab: Notes/Report: Not Medicated Consistent Not Medicated Consistent Not Medicated Consistent Not Medicated Consistent Specific Price 1.025 1.003 - 1.030 pH 6.2 3.0 - 10.9 Oxidants -11 200 g/mL Creatinine 236.2 20.0 - 300.0 mg/dL Benzodiazepines Reviewed date:03/27/2025 08:51:04 AM Interpretation: Performing Lab:[facility], [address] [facility], HAILY GONZALES, Director - [id number] Notes/Report: An exception occurred while processing this report and so it has incomplete data. Please contact [employer] for assistance. Not Medicated Consistent Not [...] NEGATIVE 20.0 ng/mL PDF Report CE_OUT_RAW_COMMON_S RC_ORU NEED PHYSICIAN SIGNATURE Reviewed date:03/27/2025 08:51:04 AM Interpretation: Performing Lab: Notes/Report: Seroquel Reviewed date:03/27/2025 08:51:04 AM Interpretation: Performing Lab: Notes/Report: UDT Reviewed date:03/15/2025 03:07:36 PM Interpretation: Performing Lab: Notes/Report: THC NEG 0 - 50 ng/ml Cocaine NEG 0 - 300 ng/ml Amphetamine NEG 0 - 1000 ng/ml Buprenorphine (BUP) NEG 0 - 10 ng/ml Secobarbital (Bar) NEG 0 - 300 ng/ml Oxazepam (BZO) NEG 0 - 300 ng/ml 4-kzooexemhi-7,5-xwmcylmj-0, 3-diphenylpyr rolidine (EDDP) NEG 0 - 300 ng/ml Methamphetamine (MET) NEG 0 - 1000 ng/ml Methylenedioxymethamphetamine (MDMA) NEG 0 - 500 ng/ml Morphine (MOP 300/[id number]) NEG 0 - 300 ng/ml Methadone (MTD) [...] Status Risk Notes Problem Generalized anxiety disorder (97408312) Generalized anxiety disorder (F41.1) Active confirmed Problem Panic disorder (808295249) Panic disorder [episodic paroxysmal anxiety] without agoraphobia (F41.0) Active confirmed Problem Attention deficit hyperactivity disorder (593280201) Attention deficit hyperactivity disorder (ADHD), unspecified ADHD type (F90.9) Active confirmed Problem 51727869 Poor concentration (R41.840) Active confirmed Problem Moderate recurrent major depression (39572123) Major depressive disorder, recurrent episode, moderate (F33.1) Active confirmed Problem Acne vulgaris (96942809) Acne vulgaris (L70.0) 02/22/20 18 Active confirmed Problem Psoriasis (6604962) Psoriasis (L40.9) 02/22/20 18 Active confirmed Vital Signs Heart Rate 89 /min 03/23/2025 Height-cm 185.42 cm 03/23/2025 Blood pressure diastolic 88 mm Hg 03/23/2025 Weight-kg 96.62 kg 03/23/2025 Height 73.00 in 03/23/2025 Blood pressure systolic 144 mm Hg 03/23/2025 Weight 213 lbs 03/23/2025 BMI 28.1 kg/m2 03/23/2025 Encounters Encounter Location Date Provider Diagnosis [facility] [employer] [facility], [address] [address] [address] 10/16/2024 Sabra Anupama Generalized anxiety disorder F41.1 ; Major depressive disorder, recurrent episode, moderate F33.1 and Panic disorder [episodic paroxysmal anxiety] without agoraphobia F41.0 [facility] [employer] [facility] [address] [facility] [address] [address] 11/02/2024 Luis Enrique Shyann Generalized anxiety disorder F41.1 ; Major depressive disorder, recurrent episode, moderate F33.1 and Panic disorder [episodic paroxysmal anxiety] without agoraphobia F41.0 [facility] [facility] [address] [facility] [address] [address] 11/23/2024 Luis Enrique Shyann Poor concentration R41.840 [facility] [address] [address] 11/30/2024 Luis Enrique Shyann Generalized anxiety disorder F41.1 ; Major depressive disorder, recurrent episode, moderate F33.1 ; Panic disorder [episodic paroxysmal anxiety] without agoraphobia F41.0 and Poor concentration R41.840 [facility] [address] [address] 01/25/2025 Luis Enrique Shyann Generalized anxiety disorder F41.1 ; Major depressive disorder, recurrent episode, moderate F33.1 ; Panic disorder [episodic paroxysmal anxiety] without agoraphobia F41.0 and Poor concentration R41.840 [facility] [employer] [facility] [address] [address] 03/15/2025 Luis Enrique Shyann Attention deficit hyperactivity disorder (ADHD), unspecified ADHD type F90.9 [facility], [facility] [address] [place] [address] 03/23/2025 Luis Enrique Shyann Generalized anxiety disorder F41.1 ; Major depressive disorder, recurrent episode, moderate F33.1 ; Panic disorder [episodic paroxysmal anxiety] without agoraphobia F41.0 ; Negative depression screening Z13.31 ; Encounter for screening for cardiovascular disorders Z13.6 and Dietary counseling and surveillance Z71.3 [facility], [facility] [address] [place] [address] 11/02/2024 Luis Enrique Shyann [facility], [facility] [address] [place] [address] 11/02/2024 Luis Enrique Shyann [facility], [facility] [address] [place] [address] 01/30/2025 Luis Enrique Shyann Generalized anxiety disorder F41.1 [facility], [facility] [address] [place] [address] 02/07/2025 Luis Enrique Shyann Generalized anxiety disorder F41.1 [facility], [facility] [address] [place] [address] 02/26/2025 Luis Enrique Shyann Major depressive disorder, recurrent episode, moderate F33.1 and Generalized anxiety disorder F41.1 [facility], [facility] [address] [place] [address] 12/28/2024 Luis Enrique Shyann Generalized anxiety disorder F41.1 [facility], [facility] [address] [place] [address] 02/26/2025 Luis Enrique Shyann [facility], [facility] [address] [place] [address] 02/26/2025 Luis Enrique Shyann [facility], [facility] [address] [place] [address] 02/26/2025 Luis Enrique Shyann [facility], [facility] [address] [place] [address] 02/26/2025 Luis Enrique Shyann [facility], [facility] [address] [place] [address] 02/27/2025 Luis Enrique Boothe Major depressive disorder, recurrent episode, moderate F33.1 and Generalized anxiety disorder F41.1 [facility] [employer] [facility] [address] [facility] [address] [place] [address] 02/28/2025 Luis Enrique Boothe Major depressive disorder, [...] progress and continue addressing the identified issues. 10/16/2024 Major depressive disorder, recurrent episode, moderate [...] and cortisone prescriptions. - Send prescriptions to [facility] in [place], [place]. Substance Use - Assessment: Patient reports occasional alcohol use at social events. - Plan: - Encourage the patient to maintain abstinence from marijuana, street drugs, and excessive alcohol consumption. Follow-up - Plan: - Reevaluate in 2 months to assess the patient's symptoms and response to the addition of bupropion. 01/25/2025 Generalized anxiety disorder (ICD-10 - F41.1) 02/07/2025 Generalized anxiety disorder (ICD-10 - F41.1) 03/15/2025 Attention deficit hyperactivity disorder (ADHD), unspecified ADHD type (ICD-10 - F90.9) Here is a structured analysis and non-pharmacologic treatment recommendations based on the [facility] Clinical Report for [facility]: Summary of Findings: ADHD Screening (ASRS): [...] body scan or breath tracking to improve xrrzai-bh-tborgo awareness and reduce impulsive reactions. Executive Function Skill Development: Structured time management strategies like task batching and prioritized to-do lists. Use tools like visual timers to improve dtow-mh-qpwr and reduce reactionary task switching. Physical Activity [...] 03/23/2025 Generalized anxiety disorder (ICD-10 - F41.1) 03/23/2025 Major depressive disorder, recurrent episode, moderate (ICD-10 - F33.1) 12/28/2024 Generalized anxiety disorder (ICD-10 - F41.1) 11/02/2024 Generalized anxiety disorder (ICD-10 - F41.1) [...] Plan: - Order ADHD testing (computer-based test) post-[place]. - Reassess the need for medication adjustments [...] supply of medications until the next appointment. 02/26/2025 Major depressive disorder, recurrent episode, moderate (ICD-10 - F33.1) 01/30/2025 Generalized anxiety disorder (ICD-10 - F41.1) 02/27/2025 Major depressive disorder, recurrent episode, moderate (ICD-10 - F33.1) 02/28/2025 Major depressive disorder, recurrent episode, moderate (ICD-10 - F33.1) 02/28/2025 Generalized anxiety disorder (ICD-10 - F41.1) 02/27/2025 Generalized anxiety disorder (ICD-10 - F41.1) 03/23/2025 Panic disorder [episodic paroxysmal anxiety] without agoraphobia (ICD-10 - F41.0) 11/02/2024 Major depressive disorder, recurrent episode, moderate [...] Plan: - Order ADHD testing (computer-based test) post-[place]. - Reassess the need for medication adjustments [...] supply of medications until the next appointment. 02/26/2025 Generalized anxiety disorder (ICD-10 - F41.1) 11/30/2024 Major depressive disorder, recurrent episode, moderate [...] and cortisone prescriptions. - Send prescriptions to [facility] in [place], [place]. Substance Use - Assessment: Patient reports occasional alcohol use at social events. - Plan: - Encourage the patient to maintain abstinence from marijuana, street drugs, and excessive alcohol consumption. Follow-up - Plan: - Reevaluate in 2 months to assess the patient's symptoms and response to the addition of bupropion. 01/25/2025 Major depressive disorder, recurrent episode, moderate (ICD-10 - F33.1) 10/16/2024 Panic disorder [episodic paroxysmal anxiety] without [...] and cortisone prescriptions. - Send prescriptions to [facility] in [place], [place]. Substance Use - Assessment: Patient reports [...] and cortisone prescriptions. - Send prescriptions to [facility] in [place], [place]. Substance Use - Assessment: Patient reports occasional alcohol use at social events. - Plan: - Encourage the patient to maintain abstinence from marijuana, street drugs, and excessive alcohol consumption. Follow-up - Plan: - Reevaluate in 2 months to assess the patient's symptoms and response to the addition of bupropion. 01/25/2025 Panic disorder [episodic paroxysmal anxiety] without agoraphobia (ICD-10 - F41.0) 11/02/2024 Panic disorder [episodic paroxysmal anxiety] without [...] Plan: - Order ADHD testing (computer-based test) post-[place]. - Reassess the need for medication adjustments [...] supply of medications until the next appointment. 03/23/2025 Negative depression screening (ICD-10 - Z13.31) 01/25/2025 Poor concentration (ICD-10 - R41.840) 03/23/2025 Encounter for screening for cardiovascular disorders (ICD-10 - Z13.6) 03/23/2025 Dietary counseling and surveillance (ICD-10 - [...] ensure accuracy, there may be errors, including board filler inaccuracies and misspellings of medication names. This document should not be considered a verbatim record, and any discrepancies should be verified with the provider. Plan Of Treatment Future Test Test Name Order Date ADHD Testing 11/30/2024 Next Appt Details Provider Name:Luis Enrique Boothe , 06/22/2025 10:00:00 AM, [address], [place], [address], Insurance Providers Payer Name Payer Address Payer Phone Subscriber Number Group Number Insured Name Patient Relationship to Insured Coverage Start Date Coverage End Date [facility] [address] [place] [address] [id number] SOCORRO [place] Self - patient is [...] deficiency: No Surgical History Surgery Date(Month/Year) Tonsillectomy ([id number])
--- OUTSIDE RECORDS SUMMARY | 2025-04-29 15:00 | XMS_ITS | Clinical Summary ---
Author Organization [employer] [facility] Address [address] [place] [address] Care Team Providers Care Manager Architectural Name Role Phone Tha Rodriguez MD Primary Care Provider [phone] Allergies Active Allergy Reactions Criticality Noted Date [...] Comments Blood Pressure 124/84 11/12/2020 5:01 PM SECURITIES SETTLEMENT PROCESSOR Pulse 100 11/12/2020 5:01 PM SECURITIES SETTLEMENT PROCESSOR Temperature 36.9 C (98.5 F) 11/12/2020 1:13 PM SECURITIES SETTLEMENT PROCESSOR Respiratory Rate 22 11/12/2020 5:01 PM SECURITIES SETTLEMENT PROCESSOR Oxygen Saturation 100% 11/12/2020 3:27 PM SECURITIES SETTLEMENT PROCESSOR Inhaled Oxygen Concentration - - Weight 90.7 kg (200 lb) 11/12/2020 1:13 PM SECURITIES SETTLEMENT PROCESSOR Height 185.4 cm (6' 1) 11/12/2020 1:13 PM SECURITIES SETTLEMENT PROCESSOR Body Mass Index 26.39 11/12/2020 1:13 PM SECURITIES SETTLEMENT PROCESSOR Plan of Treatment Health Maintenance Due Date Last Done Comments DTAP/TDAP/TD VACCINES (1 - Tdap) 2002 HEPATITIS B VACCINES (1 of 3 - 19+ 3-dose series) 2002 INFLUENZA VACCINE (#1) 2024 HPV VACCINES Aged Out No longer eligi ble based on patient's age to complete this topic Insurance [facility] BLUE ACCESS CHOICE Care Teams Manager Architectural Relationship Specialty Start Date End Date hTa Rodriguez MD [address] [place] [address] PCP - General Internal Medicine 01/30/19
--- OUTSIDE RECORDS SUMMARY | 2025-04-29 15:00 | XMS_ITS | Clinical Summary ---
Author Organization [employer] Address [address] [place] [address] Care Team Providers Care Casing Trimmer Name Role Phone Dequan Mobley MD Primary Care Provider [phone] Source Comments [facility] [employer],non-owned Affiliates and Associated Physician Practices is amultiple site organization consisting of ambulatory clinics and hospital sitesin [place], [place], [place] and [place]. This disclosure is being madepursuant to the Care Everywhere program and may not contain all information available regarding this patient. Last updated 18.[employer] Allergies Active Allergy Reactions Criticality Noted Date [...] on file Legal Sex Male 6:49 PM PHLEBOTOMIST ASSOCIATE Gender Identity Not on file Sexual Orientation Not on file Last Filed Vital Signs Vital Sign Reading Time Taken Comments Blood Pressure 137/85 12/09/2022 3:25 PM PHLEBOTOMIST ASSOCIATE Pulse 102 12/09/2022 3:25 PM PHLEBOTOMIST ASSOCIATE Temperature 36.2 C (97.1 F) 12/09/2022 3:25 PM PHLEBOTOMIST ASSOCIATE Respiratory Rate 17 12/09/2022 3:25 PM PHLEBOTOMIST ASSOCIATE Oxygen Saturation 100% 12/09/2022 3:25 PM PHLEBOTOMIST ASSOCIATE Inhaled Oxygen Concentration - - Weight 82.1 kg (181 lb) 12/09/2022 3:25 PM PHLEBOTOMIST ASSOCIATE Height 185.4 cm (6' 1) 12/09/2022 3:25 PM PHLEBOTOMIST ASSOCIATE Body Mass Index 23.88 12/09/2022 3:25 PM PHLEBOTOMIST ASSOCIATE Plan of Treatment Health Maintenance Due Date [...] complete this topic Insurance [employer] Care Teams Casing Trimmer Relationship Specialty Start Date End Date Dequan Mobley MD [address] [place] [address] PCP - General 10/19/12
--- OUTSIDE RECORDS SUMMARY | 2025-04-29 15:58 | XMS_ITS | Clinical Summary ---
Author Organization [employer] [facility] Address [address] [place] [address] Care Team Providers Care Daytime Babysitter Name Role Phone Tha Rodriguez MD Primary Care Provider [phone] Allergies Active Allergy Reactions Criticality Noted Date [...] Comments Blood Pressure 124/84 11/12/2020 5:01 PM WRITING TUTOR Pulse 100 11/12/2020 5:01 PM WRITING TUTOR Temperature 36.9 C (98.5 F) 11/12/2020 1:13 PM WRITING TUTOR Respiratory Rate 22 11/12/2020 5:01 PM WRITING TUTOR Oxygen Saturation 100% 11/12/2020 3:27 PM WRITING TUTOR Inhaled Oxygen Concentration - - Weight 90.7 kg (200 lb) 11/12/2020 1:13 PM WRITING TUTOR Height 185.4 cm (6' 1) 11/12/2020 1:13 PM WRITING TUTOR Body Mass Index 26.39 11/12/2020 1:13 PM WRITING TUTOR Plan of Treatment Health Maintenance Due Date Last Done Comments DTAP/TDAP/TD VACCINES (1 - Tdap) 2002 HEPATITIS B VACCINES (1 of 3 - 19+ 3-dose series) 2002 INFLUENZA VACCINE (#1) 2024 HPV VACCINES Aged Out No longer eligi ble based on patient's age to complete this topic Insurance [facility] BLUE ACCESS CHOICE Care Teams Daytime Babysitter Relationship Specialty Start Date End Date Tha Rodriguez MD [address] [place] [address] PCP - General Internal Medicine 01/30/19
--- OUTSIDE RECORDS SUMMARY | 2025-04-29 15:58 | XMS_ITS | Clinical Summary ---
Author Organization [employer] Address [address] [place] [address] Care Team Providers Care Perioperative Assistant Name Role Phone Dequan Mobley MD Primary Care Provider [phone] Source Comments [facility],non-owned Affiliates and Associated Physician Practices is amultiple site organization consisting of ambulatory clinics and hospital sitesin [place], [place], [place] and [place]. This disclosure is being madepursuant to the Care Everywhere program and may not contain all information available regarding this patient. Last updated 18.[employer] Allergies Active Allergy Reactions Criticality Noted Date [...] on file Legal Sex Male 6:49 PM POISING INSPECTOR Gender Identity Not on file Sexual Orientation Not on file Last Filed Vital Signs Vital Sign Reading Time Taken Comments Blood Pressure 137/85 12/09/2022 3:25 PM POISING INSPECTOR Pulse 102 12/09/2022 3:25 PM POISING INSPECTOR Temperature 36.2 C (97.1 F) 12/09/2022 3:25 PM POISING INSPECTOR Respiratory Rate 17 12/09/2022 3:25 PM POISING INSPECTOR Oxygen Saturation 100% 12/09/2022 3:25 PM POISING INSPECTOR Inhaled Oxygen Concentration - - Weight 82.1 kg (181 lb) 12/09/2022 3:25 PM POISING INSPECTOR Height 185.4 cm (6' 1) 12/09/2022 3:25 PM POISING INSPECTOR Body Mass Index 23.88 12/09/2022 3:25 PM POISING INSPECTOR Plan of Treatment Health Maintenance Due Date [...] complete this topic Insurance [employer] Care Teams Perioperative Assistant Relationship Specialty Start Date End Date Dequan Mobley MD [address] [place] [address] PCP - General 10/19/12
--- NOTE | 2025-04-29 16:35 | ED_ITS ---
HPI - Skin/Abscess/Foreign Bdy General Chief complaint: Skin/Abscess/Foreign Body Stated complaint: lip numbness from medication Time Seen by Provider: 04/29/25 15:52 History of Present Illness HPI narrative: Patient is a 40-year-old male who presents ER with concerns for side effect or allergic reaction to a new medication. He gave himself Skyrizi for the 1st time 2 days ago. Today he noticed some new rash to his chin. He also feels like he had some numbness to the left upper lip that has since gone away. No facial weakness or droop. No slurred speech. No difficulty breathing or swelling. Patient was wearing a respirator a couple days ago that may have contributed to rash. Related Data Home Medications ?Medication ?Instructions ?Recorded ?Confirmed ?Last Taken ?Type bupropion HCl 150 mg 24 hr tablet, mg PO 12/11/24 12/11/24 Unknown History extended release quetiapine 25 mg tablet mg PO 12/11/24 12/11/24 Unknown History Allergies Allergy/AdvReac Type Severity Reaction Status Date / Time Penicillins Allergy Unknown Unknown Verified 04/29/25 15:17 sulfamethizole Allergy Unknown Hives Verified 04/29/25 15:17 trimethoprim Allergy Unknown Unknown Verified 04/29/25 15:17 Review of Systems Review of Systems: All systems reviewed & are unremarkable except as noted in HPI and below Constitutional: Constitutional: Reports no additional constitutional complaints ENT: Reports system reviewed and no additional complaints, except as documented Respiratory: Respiratory: Reports no additional respiratory complaints Neurologic: Reports system reviewed and no additional complaints, except as documented Allergic/Immunologic: Allergic/Immunologic: Reports no additional allergic/immunologic complaints PMFSH Past Medical History Medical History Elevated glucose Apnea GERD without esophagitis Hand pain, right Numbness of left foot Insomnia Anxiety Depression GI bleed GERD (gastroesophageal reflux disease) Surgical History Surgical History Hx of wisdom tooth extraction History of tonsillectomy Family History Family History Grandparent Hypertension Cerebrovascular accident Family history of lymphoma Father Chronic pain Depression Diabetes mellitus Mother Parkinson's disease Neuropathy Sibling No problems noted. 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 HEAD: Normocephalic, atraumatic. EYES: PERRL and EOMI. ENT: Mucous membranes moist. Small papular rash to the chin bilaterally without pustules or vesicles. Sensation intact. EXTREMITIES: Normal range of motion. No edema. SKIN: Warm, dry, no rash. NEURO: Somewhat looks like he has drip on left side but he thinks it may be chronic. When he commands his face this mild left eyebrows it is symmetric when he is speaking he seems to lift his right eyebrow higher than left. Unsure if this is a mannerism of his. Alert and oriented x3. PSYCH: Normal mood and affect. Course Course Emergency Course: Attending in the on the left this does not look like a serious reaction to his medication. The question whether he could have a Farley's palsy. Will prescribe prednisone/valacyclovir to take if symptoms worse. Vital Signs Vital signs: Vital Signs Temperature 97.8 F 04/29/25 14:58 Pulse Rate 100 04/29/25 14:58 Respiratory Rate 18 04/29/25 14:58 Blood Pressure 145/88 H 04/29/25 14:58 Pulse Oximetry 100 04/29/25 14:58 Oxygen Delivery Room Air 04/29/25 14:58 Temperature 97.8 F 04/29/25 14:58 Pulse Rate 100 04/29/25 14:58 Respiratory Rate 18 04/29/25 14:58 Blood Pressure 145/88 H 04/29/25 14:58 Pulse Oximetry 100 04/29/25 14:58 Oxygen Delivery Room Air 04/29/25 14:58 Discharge Plan Discharge Clinical Impression: Rash and nonspecific skin eruption Patient Disposition: Home Condition: Stable Instructions: Dermatitis (ED) Additional Instructions: Your skin rash may be from wearing a respirator. Is also possibly could be developing a Farley's palsy since he has had some numbness to her left you know it is resolved. You will receive medications to treat a Farley's palsy, fill them if symptoms worsen. Patient Language: South Sudanese Prescriptions: New prednisone 50 mg tablet 50 mg PO DAILY Qty: 7 0RF valacyclovir 1 gram tablet 1,000 mg PO TID Qty: 21 0RF No Action benzonatate 200 mg capsule 200 mg PO TID 7 Days Qty: 21 0RF prednisone 20 mg tablet 40 mg PO DAILY 5 Days Qty: 10 0RF albuterol sulfate 90 mcg/actuation HFA aerosol inhaler 2 puff inhalation Q4-6H PRN (Reason: shortness of breath or wheezing) 30 Days Qty: 8.5 0RF quetiapine 25 mg tablet PO bupropion HCl 150 mg tablet extended release 24 hr PO escitalopram oxalate [Lexapro] 20 mg tablet 20 mg PO DAILY Qty: 90 0RF clonazepam 0.5 mg tablet See Rx Instructions PO BID PRN (Reason: anxiety) Qty: 45 2RF Rx Instructions: 1 tablet in a.m and 1/2 tablet in evening orally twice a day PRN; Follow-up/Referrals: Dequan Mobley MD [Primary Care Provider] - 1 Week
== END 2025-04-29 17:07 | disposition home or self-care (01) ==
PROVIDERS: Emergency Provider Emergency Medicine; PCP Family Medicine
DX: R21 Rash and other nonspecific skin eruption (principal); K21.9 Gastro-esophageal reflux disease without esophagitis; F41.8 Other specified anxiety disorders
CPT/HCPCS: 99283

== ENCOUNTER 2025-06-17 11:24 | Emergency (ER) | payer BC, SELFPAY ==
--- OUTSIDE RECORDS SUMMARY | 2025-06-17 11:28 | XMS_ITS | Clinical Summary ---
Author Organization [employer] [facility] Address [address] [place] [address] Care Team Providers Care Personnel Arbitrator Name Role Phone Tha Rodriguez MD Primary Care Provider [phone] Allergies Active Allergy Reactions Criticality Noted Date [...] Comments Blood Pressure 124/84 11/12/2020 5:01 PM APPLICATIONS SUPPORT SPECIALIST Pulse 100 11/12/2020 5:01 PM APPLICATIONS SUPPORT SPECIALIST Temperature 36.9 C (98.5 F) 11/12/2020 1:13 PM APPLICATIONS SUPPORT SPECIALIST Respiratory Rate 22 11/12/2020 5:01 PM APPLICATIONS SUPPORT SPECIALIST Oxygen Saturation 100% 11/12/2020 3:27 PM APPLICATIONS SUPPORT SPECIALIST Inhaled Oxygen Concentration - - Weight 90.7 kg (200 lb) 11/12/2020 1:13 PM APPLICATIONS SUPPORT SPECIALIST Height 185.4 cm (6' 1) 11/12/2020 1:13 PM APPLICATIONS SUPPORT SPECIALIST Body Mass Index 26.39 11/12/2020 1:13 PM APPLICATIONS SUPPORT SPECIALIST Plan of Treatment Health Maintenance Due Date Last Done Comments HPV VACCINES (1 - Male 3-dose series) 1998 DTAP/TDAP/TD VACCINES (1 - Tdap) 2002 HEPATITIS B VACCINES (1 of 3 - 19+ 3-dose series) 02/21 INFLUENZA VACCINE (#1) 2025 Insurance [facility] BLUE ACCESS CHOICE Care Teams Personnel Arbitrator Relationship Specialty Start Date End Date Tha Rodriguez MD [address] [place] [address] PCP - General Internal Medicine 01/30/19
--- OUTSIDE RECORDS SUMMARY | 2025-06-17 11:28 | XMS_ITS | Clinical Summary ---
Author Organization [facility] Address [address] [place] [address] Care Team Providers Care Blender Name Role Phone Tha Rodriguez MD Primary Care Provider [phone] Allergies Active Allergy Reactions Criticality Noted Date Comments Sulfa Antibiotics Hives 07/02/2020 Medications clonazePAM 0.5 MG tablet Take 0.5 mg by mouth 3 (three) times daily as needed for Anxiety. Active escitalopram 20 MG tablet Take 20 mg by mouth daily. Active methylPREDNISolone, YUDY, 4 MG tablet 6 TABLETS ON DAY ONE, 5 TABLETS DAY TWO, 4 TABLETS DAY THREE, 3 TABLETS DAY FOUR, 2 TABLETS DAY FIVE, AND 1 TABLET DAY SIX 1 each 1 Active ondansetron 4 MG disintegrating tablet Take 1 tablet (4 mg total) by mouth every 8 (eight) hours as needed for Nausea. 20 tablet 1 Active Social History Tobacco Use Types Packs/Day Years Used Date Smoking Tobacco: Never Smokeless Tobacco: Never Alcohol Use Standard Drinks/Week Comments Yes 0 (1 standard drink = 0.6 oz pur e alcohol) occasional Sex and Gender Information Value Date Recorded Sex Assigned at Not on file Legal Sex Male 7:05 PM CDT Gender Identity Not on file Sexual Orientation Not on file Last Filed Vital Signs Vital Sign Reading Time Taken Comments Blood Pressure 114/73 01/25/2021 6:00 PM SITECORE DEVELOPER Pulse 98 01/25/2021 5:21 PM SITECORE DEVELOPER Temperature 37.1 C (98.8 F) 01/25/2021 5:21 PM SITECORE DEVELOPER Respiratory Rate 16 01/25/2021 5:21 PM SITECORE DEVELOPER Oxygen Saturation 97% 01/25/2021 5:59 PM SITECORE DEVELOPER Inhaled Oxygen Concentration - - Weight 88.5 kg (195 lb) 01/25/2021 5:21 PM SITECORE DEVELOPER Height 185.4 cm (6' 1) 01/25/2021 5:21 PM SITECORE DEVELOPER Body Mass Index 25.73 01/25/2021 5:21 PM SITECORE DEVELOPER Plan of Treatment Health Maintenance Due Date Last Done Comments Annual Physical 1986 Hepatitis C 2001 DTaP, Tdap and Td Vaccines ( 1 - Tdap) 2002 Hepatitis B Vaccines (1 of 3 - 19+ 3-dose series) 2002 HPV Vaccines (1 - 3-dose SCD M series) 2010 COVID-19 Vaccine ( - 2023-2 5 season) 2024 Meningococcal B Vaccine Aged Out No l onger eligible based on patient's age to complete this topic Meningococcal Vaccine Aged Out No portillo omari eligible based on patient's age to complete this topic Pneumococcal Vaccine: Pediat rics (0 to 5 Years) and At-Risk Patients (6 to 49 Years) Aged Out No longer eligible b ased on patient's age to complete this topic RSV Immunizations Under 20 Months Aged Out No longer eligible based on patient's age to complete this topic Insurance Care Teams Blender Relationship Specialty Start Date End Date Tha Rodriguez MD [address] [facility] [address] [place] [address] PCP - General INTERNAL MEDICINE 07/02/20
--- OUTSIDE RECORDS SUMMARY | 2025-06-17 11:29 | XMS_ITS | Patient Health Record ---
Author Organization [facility] Address [address] [facility] [address] [place] [address] Care Team Providers Care Glove Factory Sewer Name Role Phone Leandra MENENDEZ, Dequan Primary Care Provider Linh huffman Luis Enrique Boothe Unavailable [phone] Sabra Altman Unavailable [phone] Allergies Allergen (clinical drug ingredient) Drug/Non Drug Allergy documented on EMR Reaction Allergy Type Onset Date Status Substance with sulfonamide structure and antibacterial mechanism of action (substance) SULFA (SULFONAMIDE ANTIBIOTICS) (uncoded) Unknown Allergy 09/14/2022 Active sulfamethizole (uncoded) Unknown Allergy Active Penicillin Unknown Drug Allergy Active trimethoprim Trimethoprim Unknown Drug Allergy A ctive Results Component Value Reference Range Notes UDT Reviewed date:03/15/2025 03:07:36 PM Interpretation: Performing Lab: Notes/Report: THC NEG 0 - 50 ng/ml Cocaine NEG 0 - 300 ng/ml Amphetamine NEG 0 - 1000 ng/ml Buprenorphine (BUP) NEG 0 - 10 ng/ml Secobarbital (Bar) NEG 0 - 300 ng/ml Oxazepam (BZO) NEG 0 - 300 ng/ml 6-wrnebfenup-6,1-upvvubrt-5, 3-diphenylpyr rolidine (EDDP) NEG 0 - 300 ng/ml Methamphetamine (MET) NEG 0 - 1000 ng/ml Methylenedioxymethamphetamine (MDMA) NEG 0 - 500 ng/ml Morphine (MOP 300/PQU1041) NEG 0 - 300 ng/ml Methadone (MTD) NEG 0 - 300 ng/ml Phencyclidine (PCP) NEG 0 - 25 ng/ml Nortriptyline (TCA) NEG 0 - 1000 ng/ml Oxycodone NEG 0 - 300 ng/ml x NEG 0 - 300 ng/ml UDT Reviewed date:11/23/2024 03:37:23 PM Interpretation: Performing Lab: Notes/Report: THC NEG 0 - 50 ng/ml Cocaine NEG 0 - 300 ng/ml Amphetamine NEG 0 - 1000 ng/ml Buprenorphine (BUP) NEG 0 - 10 ng/ml Secobarbital (Bar) NEG 0 - 300 ng/ml Oxazepam (BZO) NEG 0 - 300 ng/ml 4-jfrlaedqmf-6,7-gosfpego-9, 3-diphenylpyr rolidine (EDDP) NEG 0 - 300 ng/ml Methamphetamine (MET) NEG 0 - 1000 ng/ml Methylenedioxymethamphetamine (MDMA) NEG 0 - 500 ng/ml Morphine (MOP 300/[id number]) NEG 0 - 300 ng/ml Methadone (MTD) NEG 0 - 300 ng/ml Phencyclidine (PCP) NEG 0 - 25 ng/ml Nortriptyline (TCA) NEG 0 - 1000 ng/ml Oxycodone NEG 0 - 300 ng/ml x NEG 0 - 300 ng/ml Seroquel Reviewed date:03/27/2025 08:51:04 AM Interpretation: Performing Lab: Notes/Report: NEED PHYSICIAN SIGNATURE Reviewed date:03/27/2025 08:51:04 AM Interpretation: Performing Lab: Notes/Report: Benzodiazepines Reviewed date:03/27/2025 08:51:04 AM Interpretation: Performing Lab:, [facility], [address] [place] [address], Director - [id number] Notes/Report: An exception occurred while processing this report and so it has incomplete data. Please contact [employer] for assistance. Not Medicated Consistent Not [...] Not Medicated Consistent Not Medicated Consistent Specific [place] 1.025 1.003 - 1.030 pH 6.2 3.0 - 10.9 Oxidants -11 200 g/mL Creatinine 236.2 20.0 - 300.0 mg/dL UDT Reviewed date:01/25/2025 12:16:10 PM Interpretation: Performing Lab: Notes/Report: THC N 0 - 50 ng/ml Cocaine N 0 - 300 ng/ml Amphetamine N 0 - 1000 ng/ml Buprenorphine (BUP) N 0 - 10 ng/ml Secobarbital (Bar) N 0 - 300 ng/ml Oxazepam (BZO) N 0 - 300 ng/ml 7-jntfzwvgzq-6,9-yjyiwycy-9, 3-diphenylpyr rolidine (EDDP) N 0 - 300 ng/ml Methamphetamine (MET) N 0 - 1000 ng/ml Methylenedioxymethamphetamine (MDMA) N 0 - 500 ng/ml Morphine (MOP 300/[id number]) N 0 - 300 ng/ml Methadone (MTD) N 0 - 300 ng/ml Phencyclidine (PCP) N 0 - 25 ng/ml Nortriptyline (TCA) N 0 - 1000 ng/ml Oxycodone N 0 - 300 ng/ml x N 0 - 300 ng/ml Benzodiazepines Reviewed date:02/14/2025 08:57:21 PM Interpretation: Performing Lab:[address] [place] [address], [address] [place] [address], Director - [id number] Notes/Report: An exception occurred while processing this report and so it has incomplete data. Please contact [employer] for assistance. Not Medicated Consistent Not [...] NEGATIVE 20.0 ng/mL PDF Report [email or web address] Reason For Referral No Information Medications Medication SIG (Take, Route, Frequency, Duration) Notes Start Date End Date Status Escitalopram Oxalate 10 MG 1 tablet Oral Once a day; Duration: 90 days 02/07/2025 Active QUEtiapine Fumarate 25 MG 1 tablet at be dtime Oral Once a day; Duration: 90 days Active buPROPion HCl ER (XL) 150 MG 1 tablet in the morning Orally Once a day; Duration: 90 days Active clonazePAM 0.5 MG 1 tablet Oral Once a day; Duration: 30 days 03/23/2025 Active Escitalopram Oxalate 20 MG 1 tablet Oral Once a day; Duration: 90 days Active Immunizations Vaccine Route Administration Date Status [...] Status Risk Notes Problem Generalized anxiety disorder (37412772) Generalized anxiety disorder (F41.1) Active confirmed Problem Panic disorder (806455026) Panic disorder [episodic paroxysmal anxiety] without agoraphobia (F41.0) Active confirmed Problem Attention deficit hyperactivity disorder (675077239) Attention deficit hyperactivity disorder (ADHD), unspecified ADHD type (F90.9) Active confirmed Problem Poor concentration (91149870) Poor concentration (R41.840) Active confirmed Problem Moderate recurrent major depression (01134939) Major depressive disorder, recurrent episode, moderate (F33.1) Active confirmed Problem Acne vulgaris (59399071) Acne vulgaris (L70.0) 02/22/20 18 Active confirmed Problem Psoriasis (6430877) Psoriasis (L40.9) 02/22/20 18 Active confirmed Vital Signs Heart Rate 89 /min 03/23/2025 Height-cm 185.42 cm 03/23/2025 Blood pressure diastolic 88 mm Hg 03/23/2025 Weight-kg 96.62 kg 03/23/2025 Height 73.00 in 03/23/2025 Blood pressure systolic 144 mm Hg 03/23/2025 Weight 213 lbs 03/23/2025 BMI 28.1 kg/m2 03/23/2025 Encounters Encounter Location Date Provider Diagnosis [facility], [facility] [address] [address] 10/16/2024 Sabra Anupama Generalized anxiety disorder F41.1 ; Major depressive disorder, recurrent episode, moderate F33.1 and Panic disorder [episodic paroxysmal anxiety] without agoraphobia F41.0 [facility] [address] [address] 11/02/2024 Luis Enrique Shyann Generalized anxiety disorder F41.1 ; Major depressive disorder, recurrent episode, moderate F33.1 and Panic disorder [episodic paroxysmal anxiety] without agoraphobia F41.0 [facility] [address] [facility] [address] [address] 11/23/2024 Luis Enrique Shyann Poor concentration R41.840 [facility] [place] [address] [facility] [address] [address] 11/30/2024 Luis Enrique Shyann Generalized anxiety disorder F41.1 ; Major depressive disorder, recurrent episode, moderate F33.1 ; Panic disorder [episodic paroxysmal anxiety] without agoraphobia F41.0 and Poor concentration R41.840 [facility] [place] [address] [facility] [address] [address] 01/25/2025 Luis Enrique Shyann Generalized anxiety disorder F41.1 ; Major depressive disorder, recurrent episode, moderate F33.1 ; Panic disorder [episodic paroxysmal anxiety] without agoraphobia F41.0 and Poor concentration R41.840 [facility] [address] [place] [address] 03/15/2025 Luis Enrique Shyann Attention deficit hyperactivity disorder (ADHD), unspecified ADHD type F90.9 [facility], [facility] [address] [place] [address] 03/23/2025 Luis Enrique Shyann Generalized anxiety disorder F41.1 ; Major depressive disorder, recurrent episode, moderate F33.1 ; Panic disorder [episodic paroxysmal anxiety] without agoraphobia F41.0 ; Negative depression screening Z13.31 ; Encounter for screening for cardiovascular disorders Z13.6 and Dietary counseling and surveillance Z71.3 [facility], [facility] [address] [place] [address] 11/02/2024 Luis Enrique Shyann [facility], [facility] [address] [place] [address] 11/02/2024 Luis Enrique Shyann [facility], [facility] [address] [place] [address] 01/30/2025 Luis Enrique Shyann Generalized anxiety disorder F41.1 [facility], [facility] [address] [place] [address] 02/07/2025 Luis Enrique Shyann Generalized anxiety disorder F41.1 [facility], [facility] [address] [place] [address] 02/26/2025 Luis Enrique Shyann Major depressive disorder, recurrent episode, moderate F33.1 and Generalized anxiety disorder F41.1 [facility], [facility] [address] [place] [address] 12/28/2024 Luis Enrique Shyann Generalized anxiety disorder F41.1 [facility], [facility] [address] [place] [address] 02/26/2025 Luis Enrique Shyann [facility], [facility] [address] [place] [address] 02/26/2025 Luis Enrique Shyann [facility], [facility] [address] [place] [address] 02/26/2025 Luis Enrique Shyann [facility], [facility] [address] [place] [address] 02/26/2025 Luis Enrique Shyann [facility] [address] [place] [address] 02/27/2025 Luis Enrique Boothe Major depressive disorder, recurrent episode, moderate F33.1 and Generalized anxiety disorder F41.1 [facility] [address] [place] [address] 02/28/2025 Luis Enrique Boothe Major depressive disorder, [...] and cortisone prescriptions. - Send prescriptions to [facility] in [place], [place]. Substance Use - Assessment: Patient reports [...] Plan: - Order ADHD testing (computer-based test) post-[place]. - Reassess the need for medication adjustments [...] and non-pharmacologic treatment recommendations based on the [facility] Clinical Report for [facility]: Summary of Findings: ADHD [...] body scan or breath tracking to improve lmzqxg-rq-cqjrhc awareness and reduce impulsive reactions. Executive Function Skill Development: Structured time management strategies like task batching and prioritized to-do lists. Use tools like visual timers to improve ujpx-rh-cegr and reduce reactionary task switching. Physical Activity [...] Plan: - Order ADHD testing (computer-based test) post-[place]. - Reassess the need for medication adjustments [...] and cortisone prescriptions. - Send prescriptions to [facility] in [place], [place]. Substance Use - Assessment: Patient reports [...] and continue addressing the identified issues. 11/02/2024 Panic disorder [episodic paroxysmal anxiety] without [...] of medications until the next appointment. 11/30/2024 Panic disorder [episodic paroxysmal anxiety] without [...] and cortisone prescriptions. - Send prescriptions to [facility] in [place], [place]. Substance Use - Assessment: Patient reports [...] and cortisone prescriptions. - Send prescriptions to [facility] in [place], [place]. Substance Use - Assessment: Patient reports [...] ensure accuracy, there may be errors, including window shade ring sewer inaccuracies and misspellings of medication names. This document should not be considered a verbatim record, and any discrepancies should be verified with the provider. Plan Of Treatment Future Test Test Name Order Date ADHD Testing 11/30/2024 Next Appt Details Provider Name:Luis Enrique Boothe , 06/22/2025 10:00:00 AM, [address], [facility] [address], [place], [address], Insurance Providers Payer Name Payer Address Payer Phone Subscriber Number Group Number Insured Name Patient Relationship to Insured Coverage Start Date Coverage End Date [facility] [address] [place] [address] [id number] SOCORRO MORLEY Self - patient is [...] deficiency: No Surgical History Surgery Date(Month/Year) Tonsillectomy ([id number])
--- OUTSIDE RECORDS SUMMARY | 2025-06-17 11:29 | XMS_ITS | Clinical Summary ---
Author Organization [facility] Address [address] [place] [address] Care Team Providers Care Advertising Project Manager Name Role Phone Dequan Mobley MD Primary Care Provider [phone] Source Comments [facility],non-owned Affiliates and Associated Physician Practices is amultiple site organization consisting of ambulatory clinics and hospital sitesin [place], [place], [place] and [place]. This disclosure is being madepursuant to the Care Everywhere program and may not contain all information available regarding this patient. Last updated [email or web address] Allergies Active Allergy Reactions Criticality Noted Date [...] on file Legal Sex Male 6:49 PM PULP SCREEN OPERATOR Gender Identity Not on file Sexual Orientation Not on file Last Filed Vital Signs Vital Sign Reading Time Taken Comments Blood Pressure 137/85 12/09/2022 3:25 PM PULP SCREEN OPERATOR Pulse 102 12/09/2022 3:25 PM PULP SCREEN OPERATOR Temperature 36.2 C (97.1 F) 12/09/2022 3:25 PM PULP SCREEN OPERATOR Respiratory Rate 17 12/09/2022 3:25 PM PULP SCREEN OPERATOR Oxygen Saturation 100% 12/09/2022 3:25 PM PULP SCREEN OPERATOR Inhaled Oxygen Concentration - - Weight 82.1 kg (181 lb) 12/09/2022 3:25 PM PULP SCREEN OPERATOR Height 185.4 cm (6' 1) 12/09/2022 3:25 PM PULP SCREEN OPERATOR Body Mass Index 23.88 12/09/2022 3:25 PM PULP SCREEN OPERATOR Plan of Treatment Health Maintenance Due Date Last Done Comments LIPID TESTING 1983 HIV SCREENING 1998 HEPATITIS C SCREENING 03/09/2001 DTAP/TDAP/TD VACCINES (1 - Tdap) 2002 HEPATITIS B VACCINE (1 of 3 - 19+ 3-dose series) 2002 HPV VACCINE (1 - 3-dose SCDM series) 2010 COVID-19 VACCINE (1 - 2023-2 5 season) 2024 DEPRESSION SCREENING 11/22/2024 12/09/2022 INFLUENZA VACCINE (#1) 2025 ZOSTER VACCINE (1 of 2) 2033 [...] complete this topic Insurance ANTHEM Care Teams Advertising Project Manager Relationship Specialty Start Date End Date Dequan Mobley MD [address] [place] [address] PCP - General 10/19/12
[2025-06-17 11:38] VITALS: BP 119/86; PULSE 87; RESP 18; TEMP 36.2; O2SAT 98
--- NOTE | 2025-06-17 11:51 | ED_ITS ---
HPI - URI/Sore Throat General Chief Complaint: Upper Respiratory Infection Stated Complaint: sore throat Time Seen by Provider: 06/17/25 11:25 Source: patient Mode of arrival: ambulatory Limitations: no limitations History of Present Illness HPI Narrative: Patient is a 40-year-old male who presents with sore throat, chest congestion, fever, cough and vomiting. Symptoms started Wednesday after eating where patient states he vomited and went home sick. States he slept most today Wednesday. [place] better on and symptoms returned on Wednesday. Symptoms have worsened since. Patient has taken Mucinex and Tylenol. History of tonsillectomy Related Data Home Medications ?Medication ?Instructions ?Recorded ?Confirmed ?Last Taken ?Type bupropion HCl 150 mg 24 hr tablet, mg PO 12/11/24 05/07/25 Unknown History extended release quetiapine 25 mg tablet mg PO 12/11/24 05/07/25 Unknown History risankizumab-rzaa 150 mg/mL mg subcut 05/07/25 05/07/25 Unknown History subcutaneous pen injector (Skyrizi) Allergies Allergy/AdvReac Type Severity Reaction Status Date / Time Penicillins Allergy Mild Hives Verified 06/17/25 11:42 sulfamethizole Allergy Mild Hives Verified 06/17/25 11:42 trimethoprim Allergy Mild Hives Verified 06/17/25 11:42 Review of Systems Review of Systems: All systems reviewed & are unremarkable except as noted in HPI and below Constitutional: Constitutional: Denies chills, Reports fatigue, Reports fever(s), Denies headache(s), Denies malaise and Denies weakness Eyes: Eyes: Denies blurry vision, Denies itchy eyes and Denies loss of vision ENT: Denies otalgia, Denies headache(s), Reports nasal congestion, Denies sinus pain and Reports sore throat Cardiovascular: Cardiovascular: Denies chest pain, Denies irregular heart rhythm and Denies dyspnea Respiratory: Respiratory: Reports chest congestion, Reports cough and Denies dyspnea Gastrointestinal: Gastrointestinal: Denies abdominal pain, Denies diarrhea, Denies nausea and Denies vomiting Musculoskeletal: Musculoskeletal: Denies back pain, Reports myalgias and Denies arthralgias Integumentary/Breasts: Skin/Breast: Denies pruritus and Denies rash Neurologic: Denies headache(s), Denies loss of vision and Denies weakness Psychiatric: Psychiatric: Reports no additional psychiatric complaints Endocrine: Endocrine: Denies fatigue Allergic/Immunologic: Allergic/Immunologic: Denies itchy eyes PMFSH Past Medical History Medical History Elevated glucose Apnea GERD without esophagitis Hand pain, right Numbness of left foot Insomnia Anxiety Depression GI bleed GERD (gastroesophageal reflux disease) Surgical History Surgical History Hx of wisdom tooth extraction History of tonsillectomy Family History Family History Grandparent Hypertension Cerebrovascular accident Family history of lymphoma Father Chronic pain Depression Diabetes mellitus Mother Parkinson's disease Neuropathy Sibling No problems noted. 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 There is no relevant family history pertinent to the presenting complaint. Exam Const: General: cooperative, healthy appearing, comfortable, no acute distress and well nourished Nutritional Appearance: well nourished Orientation/consciousness: patient oriented x3 Limitations: no limitations HENMT: Head: normal to inspection, normocephalic and atraumatic Ears: hearing grossly normal bilaterally, external ears normal, TM's normal bilater ally, EAC's normal and no periauricular adenopathy Face/Nose/Sinus: Normal external nose present, Abnormal mucous membranes and turbinates present erythematous bilateral and diffuse, normal facial exam, sinuses nontender and face symmetric Face and sinus: normal facial exam, sinuses nontender and face symmetric Mouth: Yes Normal oral and palatal mucosa present, Yes lip normal, Yes tongue normal, Yes Normal salivary glands and ducts present, Yes oropharynx normal and Yes moist mucous membranes Teeth and gingiva: dentition normal Throat: uvula midline, posterior oropharynx abnormal erythema and tonsils absent Eyes: General: appearance normal, both eyes and all related structures Alignment and Position: alignment normal and position normal Periorbital: periorbital findings normal Eyelids: eyelids normal Pupils: Equal, round and reactive pupils present Neck: Neck: normal visual inspection, full ROM, no lymphadenopathy and supple Chest: Chest palpation & inspection: normal inspection of the chest and normal palpation of entire chest wall Resp: Effort & Inspection: normal respiratory effort and able to speak in complete sentences Auscultation: clear to auscultation bilaterally, no crackles, no rales, no rhonchi and no wheezes Cardio: Rate: regular rate Rhythm: regular rhythm Heart sounds: S1 normal heart sound present and S2 normal heart sound present GI: Inspection: normal to inspection Skin: General skin exam: normal color and no rashes or lesions noted Neuro: General: patient oriented x3 and moves all extremities Cranial nerves: Yes Equal, round and reactive pupils present Speech: normal speech Gait exam (Neuro): Normal gait present Extrem: General: normal to inspection, full ROM and no edema Psych: Appearance: grossly normal and well kempt Mental Status: mental status grossly normal Speech and movement: Normal speech and movement present Affect: normal affect Attitude: cooperative Thought process: Normal thought process present Course Course Emergency Course: Discharge instructions reviewed with patient, as well as provided in writing per nursing staff. The instructions also include specific and strict return/GO TO THE ER as well as f/u information. All questions have been answered, and the patient deny any further questions with discharge and discharge plan. Portions of this record may have been created with voice recognition software Level of Care: Express Care Visit Vital Signs Vital signs: Vital Signs Temperature 36.2 C L 06/17/25 11:38 Pulse Rate 87 06/17/25 11:38 Respiratory Rate 18 06/17/25 11:38 Blood Pressure 119/86 06/17/25 11:38 Pulse Oximetry 98 06/17/25 11:38 Oxygen Delivery Room Air 06/17/25 11:38 Temperature 36.2 C L 06/17/25 11:38 Pulse Rate 87 06/17/25 11:38 Respiratory Rate 18 06/17/25 11:38 Blood Pressure 119/86 06/17/25 11:38 Pulse Oximetry 98 06/17/25 11:38 Oxygen Delivery Room Air 06/17/25 11:38 Reviewed MDM - URI/Sore Throat MDM Narrative Medical decision making narrative: Pt well hydrated appearing, in no respiratory distress, hemodynamically stable. Recommend supportive care. The patient is stable at time of discharge the clinical impression was discussed and the patient was given the opportunity to ask questions, which were addressed as completely as possible given the information available at present. Anticipatory guidance and return to care precautions were discussed and the importance of primary care follow-up was stressed and encouraged. The patient voiced understanding of the plan, indications to return, and the need for follow-up. Exam findings show no acute concerns or changes Patient is appropriate for outpatient treatment and follow-up. Differential diagnosis considered: Murphy virus, strep pharyngitis, allergic rhinitis, upper respiratory tract infection, sinusitis, rhinosinusitis, nasopharyngitis. viral pharyngitis, otitis media, otitis externa, otitis effusion, foreign body, cerumen impaction, viral syndrome, and influenza.? Medical Records Attestation: I reviewed the patient's medical records. Lab Data Attestation: I reviewed the patient's lab results. Labs: Lab Results 06/17/25 Range/Units 12:16 POC Influenza A Ag Negative (Negative) POC Influenza B Ag Negative (Negative) POC SARS CoV-2 Ag Negative (Negative) POC Grp A Strep Screen Positive (Negative) Discharge Plan Discharge Clinical Impression: Strep throat Patient Disposition: Home Condition: Stable Instructions: Strep Throat (ED) Additional Instructions: Your rapid strep swab was positive today at [facility]. After 24 hours on antibiotics throw tooth brush away and start using a new one. Wash your sheets and cup/water bottle that is used daily. Do not share drinks. Take Motrin alternating with Tylenol for pain and fever alternating every 3 hours. 8 AM: Tylenol 11 AM: Ibuprofen 2 PM: Tylenol 5 PM: Ibuprofen 8 PM: Tylenol 11 PM: Ibuprofen 2 AM: Tylenol 5 AM: Ibuprofen Increase fluids, avoid caffeine. Other symptomatic treatments include: -Antihistamine medication such as Benadryl at night and Zyrtec/Claritin/Iveth during the day can help improve symptoms. -Use Flonase twice a day for 5 days then daily to help reduce the inflammation and dry up your sinuses. -You can also use Sudafed or Mucinex. Be sure to drink plenty of water with these medications at least 8 ounces with every dose and it is important to drink 8 to 10 glasses of water per day. Water is a natural decongestant -Eat and drink things that are easy to swallow, like tea or soup, or popsicles. -Oral rinses such as: Salt water gargles and/or may use topical anesthetic (eg. Chloraseptic spray) or lozenges to relieve dryness or throat pain). -Frequent hand washing or hand principal statistical programmer is one of the best ways to prevent spread of infection. -Using a vaporizer or humidifier at night will also help thin secretions and help with coughing up phlegm. -Follow up with primary care provider in 3-5 days if condition is not improving - For new or worsening symptoms go directly to the nearest ER Patient Language: [place] Prescriptions: New clindamycin HCl 300 mg capsule 300 mg PO Q8H 10 Days Qty: 30 0RF No Action quetiapine 25 mg tablet PO bupropion HCl 150 mg tablet extended release 24 hr PO Skyrizi 150 mg/mL pen injector subcut escitalopram oxalate [Lexapro] 20 mg tablet 20 mg PO DAILY Qty: 90 0RF clonazepam 0.5 mg tablet See Rx Instructions PO BID PRN (Reason: anxiety) Qty: 45 2RF Rx Instructions: 1 tablet in a.m and 1/2 tablet in evening orally twice a day PRN; Follow-up/Referrals: Dequan Mobley MD [Primary Care Provider] - 3 Days Stand Alone Forms: Work/School Release IP Time of Disposition: 12:16
[2025-06-17 12:18] LABS: EDCOVIDSCREEN Negative (Negative); EDINFLUASCREEN Negative (Negative); EDINFLUBSCREEN Negative (Negative); EDSTREPNEGPOS1 Positive (Negative)
== END 2025-06-17 12:17 | disposition home or self-care (01) ==
PROVIDERS: Emergency Provider Nurse Practitioner Family; PCP Family Medicine
DX: J02.0 Streptococcal pharyngitis (principal); Z20.822 Contact with and (suspected) exposure to COVID-19; K21.9 Gastro-esophageal reflux disease without esophagitis; F41.9 Anxiety disorder, unspecified; F32.A Depression, unspecified
CPT/HCPCS: 87426; 87804; 87880; 99213; G0463